=== PATIENT | male | born 1935 | race Two or more races ===

== ENCOUNTER → 2023-12-22 11:06 | Outpatient (REF) | payer OTHER, SELFPAY ==
[2023-12-22 15:47] LABS: % Basophils 1.1 % (0-2); % Eosinophils 4.7 % (0-6); % Immature Granulocytes 0.4 % (0-0.5); % Lymphocytes 22.5 % (20.5-51.1); % Monocytes 14.2 % (1.7-9.3); % Neutrophils 57.1 % (42.2-75.2); Absolute Basophils 0.1 10^3/uL (0-0.2); Absolute Eosinophils 0.4 10^3/uL (0-0.7); Absolute Lymphocytes 1.8 10^3/uL (1.2-3.4); Absolute Monocytes 1.1 10^3/uL (0.1-0.6); Absolute Neutrophils 4.5 10^3/uL (1.4-6.5); Hematocrit 43.1 % (39.0-52.0); Hemoglobin 14.3 g/dL (13.0-18.0); Mean Corp Hgb Conc. 33.2 g/dL (33.0-37.0); Mean Corpuscular Hgb 28.7 pg (27.0-31.0); Mean Corpuscular Volume 86.5 fL (80.0-94.0); Nucleated Red Blood Cells % 0 % (-); Platelet Count 238 10^3/uL (130-400); Red Blood Cell Count 4.98 10^6/uL (4.70-6.10); Red Cell Dist. Width 14.7 % (11.5-14.5); White Blood Cell Count 7.9 10^3/uL (4.8-10.8)
[2023-12-22 15:57] LABS: Blood Urea Nitrogen 23 mg/dl (9-20); Calcium 9.6 mg/dl (8.4-10.2); Carbon Dioxide 29 mmol/L (22-30); Chloride 101 mmol/L (98-107); Glucose 94 mg/dl (70-99); Potassium 4.6 mmol/L (3.5-5.1); Sodium 136 mmol/L (135-145); eGFR > 60.00
== END ==
LOC: HWLAB 11:06
PROVIDERS: ATTENDING PHYSICIAN Nurse Practitioner Family; FAMILY PHYSICIAN Internal Medicine; REFERRING PHYSICIAN Internal Medicine Cardiovascular Disease
DX: I35.0 Nonrheumatic aortic (valve) stenosis (principal); I25.10 Atherosclerotic heart disease of native coronary artery without angina pectoris
CPT/HCPCS: 36415; 80048; 85025

== ENCOUNTER → 2024-04-13 16:01 | Outpatient (REF) | payer OTHER, SELFPAY | LOC: RCS 16:01 | PROVIDERS: ATTENDING PHYSICIAN Internal Medicine Cardiovascular Disease; FAMILY PHYSICIAN Internal Medicine | DX: Z95.2 Presence of prosthetic heart valve (principal) | CPT/HCPCS: 93306 ==

== ENCOUNTER → 2024-05-03 13:12 | Outpatient (REF) | payer OTHER, SELFPAY ==
[2024-05-03 15:50] LABS: ALT (SGPT) 17 U/L (0-50); AST (SGOT) 33 U/L (17-59); Albumin 4.1 g/dl (3.5-5.0); Alkaline Phosphatase 62 U/L (38-126); Blood Urea Nitrogen 17 mg/dl (9-20); Calcium 9.4 mg/dl (8.4-10.2); Carbon Dioxide 28 mmol/L (22-30); Chloride 99 mmol/L (98-107); Glucose 99 mg/dl (70-99); HDL Cholesterol 50 mg/dl; LDL Cholesterol, Calculated 117 mg/dl; Potassium 4.2 mmol/L (3.5-5.1); Sodium 135 mmol/L (135-145); Total Bilirubin 1.3 mg/dl (0.2-1.3); Total Cholesterol 178 mg/dl (50-199); Total Protein 6.5 g/dl (6.3-8.2); Triglyceride 59 mg/dl (10-149); Very Low Density Lipoprotein 11 mg/dl (0-30); eGFR > 60.00
[2024-05-03 18:51] LABS: % Basophils 0.9 % (0-2); % Immature Granulocytes 0.3 % (0-0.5); % Lymphocytes 23.7 % (20.5-51.1); % Monocytes 12.8 % (1.7-9.3); % Neutrophils 58.3 % (42.2-75.2); Absolute Basophils 0.1 10^3/uL (0-0.2); Absolute Eosinophils 0.3 10^3/uL (0-0.7); Absolute Lymphocytes 1.7 10^3/uL (1.2-3.4); Absolute Monocytes 0.9 10^3/uL (0.1-0.6); Absolute Neutrophils 4.1 10^3/uL (1.4-6.5); Hemoglobin 15.2 g/dL (13.0-18.0); Mean Corp Hgb Conc. 33.8 g/dL (33.0-37.0); Mean Corpuscular Hgb 29.1 pg (27.0-31.0); Mean Corpuscular Volume 86.2 fL (80.0-94.0); Mean Platelet Volume 11.4 fL (7.4-10.4); Nucleated Red Blood Cells % 0 % (-); Platelet Count 192 10^3/uL (130-400); Red Blood Cell Count 5.22 10^6/uL (4.70-6.10); Red Cell Dist. Width 15.4 % (11.5-14.5); White Blood Cell Count 7.1 10^3/uL (4.8-10.8)
[2024-05-03 19:16] LABS: NT-proBNP 4150 pg/ml
== END ==
LOC: HWLAB 13:12
PROVIDERS: ATTENDING PHYSICIAN Internal Medicine Cardiovascular Disease; FAMILY PHYSICIAN Nurse Practitioner
DX: Z95.2 Presence of prosthetic heart valve (principal); R06.09 Other forms of dyspnea; I25.10 Atherosclerotic heart disease of native coronary artery without angina pectoris
CPT/HCPCS: 36415; 80053; 80061; 83880; 85025

== ENCOUNTER 2024-05-04 12:14 | Emergency (ER) | payer OTHER, SELFPAY ==
[2024-05-04 12:17] VITALS: BP 140/94
[2024-05-04 13:44] VITALS: BMI 24.4
[2024-05-04 14:03] LABS: % Basophils 0.7 % (0-2); % Eosinophils 3.7 % (0-6); % Immature Granulocytes 0.4 % (0-0.5); % Lymphocytes 19.9 % (20.5-51.1); % Monocytes 12.8 % (1.7-9.3); % Neutrophils 62.5 % (42.2-75.2); Absolute Basophils 0.1 10^3/uL (0-0.2); Absolute Eosinophils 0.3 10^3/uL (0-0.7); Absolute Lymphocytes 1.5 10^3/uL (1.2-3.4); Absolute Neutrophils 4.7 10^3/uL (1.4-6.5); Hemoglobin 13.5 g/dL (13.0-18.0); Mean Corp Hgb Conc. 34.6 g/dL (33.0-37.0); Mean Corpuscular Hgb 28.8 pg (27.0-31.0); Mean Corpuscular Volume 83.2 fL (80.0-94.0); Mean Platelet Volume 10.5 fL (7.4-10.4); Nucleated Red Blood Cells % 0 % (-); Platelet Count 177 10^3/uL (130-400); Red Blood Cell Count 4.69 10^6/uL (4.70-6.10); Red Cell Dist. Width 15.8 % (11.5-14.5); White Blood Cell Count 7.5 10^3/uL (4.8-10.8)
[2024-05-04 14:04] LABS: Urine Albumin Trace (Neg - Trace); Urine Bilirubin Negative (Negative); Urine Character Clear (Clear); Urine Color Yellow; Urine Glucose Negative (Negative); Urine Ketone Negative (Negative); Urine Leukocyte Negative (Negative); Urine Nitrite Negative (Negative); Urine Occult Blood Negative (Negative); Urine Urobilinogen 1+ (Neg - 1+)
[2024-05-04 14:10] VITALS: BP 147/81
[2024-05-04 14:14] LABS: INR 1.33; PT 16.3 Sec (11.4-14.6)
[2024-05-04 14:15] LABS: APTT 33.7 Sec (23.4-35.0)
[2024-05-04 14:22] LABS: ALT (SGPT) 16 U/L (0-50); AST (SGOT) 30 U/L (17-59); Albumin 3.7 g/dl (3.5-5.0); Alkaline Phosphatase 59 U/L (38-126); Blood Urea Nitrogen 21 mg/dl (9-20); Calcium 8.9 mg/dl (8.4-10.2); Carbon Dioxide 27 mmol/L (22-30); Chloride 100 mmol/L (98-107); Estimated Creatinine Clearance 62 ml/min; Glucose 80 mg/dl (70-99); Potassium 4.2 mmol/L (3.5-5.1); Sodium 134 mmol/L (135-145); Total Bilirubin 0.9 mg/dl (0.2-1.3); eGFR > 60.00
--- NOTE | 2024-05-04 14:54 | ED.GENMED ---
History of Present Illness
General
Chief Complaint: Change in Mental Status
Time Seen by Provider: 05/04/24 12:48
History of Present Illness
History of Present Illness:
89-year-old male with history of aortic stenosis status post TAVR on 03/17 on apixaban, hypertension presenting to the emergency department for change in mental status. Patient arrives with who reports about 2 weeks after patient's TAVR, patient
started to have some confusion and change in behavior. Patient has been having daily mild headaches, has felt a little bit off balance with patient. also notes that he has been slower to complete daily tasks. She mentions a particular
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 He gave her the wrong hair color, which is unlike him. He denies any focal weakness or sensory deficits to his extremities. He does note some
changes in vision, reports changes in color when reading, however denies significant blurred vision or diplopia. Does note that he has not had an eye exam in several years. Denies chest pain, difficulty breathing, abdominal pain. Denies fever or
systemic symptoms. Denies neck pain or stiffness. Denies recent fall or trauma. Denies additional acute medical complaints.
Phy Exam
Physical Exam
Physical Exam:
General: Well-appearing, no clinical signs of dehydration, nontoxic and in no acute distress
HEENT: protecting airway
Neck: appears supple
CV: Normal heart rate, regular rhythm, no evidence of cyanosis
Resp: No accessory muscle use, no increased work of breathing, lungs clear to auscultation bilaterally
Abd: Soft and non-distended, no tenderness to palpation, normal bowel sounds
Extremities: No deformities, no swelling, no erythema, pulses and sensation intact
Neuro: alert, no focal neurologic deficit. Patient ambulated, slightly off balance, however no significant abnormality to gait
: deferred
Rectal: deferred
Psych: Normal affect
Skin: Intact
Course
Orders/Labs/Results
Orders:
Orders
05/04/24 13:24
CT Head W/o Iv Contrast Urgent
Comment:
Reason For Exam: confusion x 1 month
05/04/24 13:42
Complete Blood Count/With Diff Urgent
Comprehensive Metabolic Panel Urgent
PTT Urgent
Prothrombin Time Urgent
Urinalysis Reflex To Culture Urgent
Date Specimen was Collected: 05/04/24
Time Specimen was Collected: 12:23
Abnormal Lab Results
05/04/24
13:42
RBC 4.69 L 10^6/uL
(4.70-6.10)
RDW 15.8 H %
(11.5-14.5)
MPV 10.5 H fL
(7.4-10.4)
Absolute Monos (auto) 1.0 H 10^3/uL
(0.1-0.6)
Lymphocytes % 19.9 L %
(20.5-51.1)
Monocytes % 12.8 H %
(1.7-9.3)
PT 16.3 H Sec
(11.4-14.6)
Sodium 134 L mmol/L
(135-145)
BUN 21 H mg/dl
(9-20)
Total Protein 6.0 L g/dl
(6.3-8.2)
05/04/24 13:42
05/04/24 13:42
Vital Signs
Initial and Last Documented VS:
Initial Vital Signs
Temp Pulse Resp BP Pulse Ox
97.5 F 83 18 140/94 100
05/04/24 12:17 05/04/24 12:17 05/04/24 12:17 05/04/24 12:17 05/04/24 12:17
Last Documented Vital Signs
Temp Pulse Resp BP Pulse Ox
97.5 F 77 22 147/81 99
05/04/24 12:17 05/04/24 14:10 05/04/24 14:10 05/04/24 14:10 05/04/24 14:10
MDM/Problems Addressed
MDM/Problems Addressed:
89-year-old male status post TAVR 03/17 on Eliquis presenting for about 1 month of increased confusion. Vital signs on arrival are normal.
On exam, patient is well-appearing, no acute distress or discomfort. Patient is awake, alert, oriented. No focal neurologic deficits, intact strength and sensation bilaterally. Normal [id number] testing. Ambulated without abnormality to
gait, slightly off balance however. Patient afebrile, no meningismus, without concern for severe infectious pathology. Unclear etiology of symptoms, particularly given duration of the symptoms. Will obtain laboratory analysis and urinalysis to
ensure no UTI. Again given length of symptoms, will obtain CT brain imaging.
16:00 -patient's labs are unremarkable, normal urinalysis, normal laboratory analysis, CT brain with cerebral atrophy, no acute findings. Vitals otherwise remain stable. Discussed with neurology, who will come evaluate patient to expedite
follow-up. Given hemodynamic stability with duration of symptoms, feel patient can appropriately be followed up outpatient with a neurologist for cognitive testing to evaluate for underlying developing dementia versus Parkinson's disease versus
demyelinating disease, potentially MRI imaging. Also advised that he schedule an appointment with his telecom specialist for formal ophthalmologic exam. Return precautions indicated and patient and family verbalized understanding
*Critical Care Note
Total Time (30-74mins, 75-104mins- exclusive of procedures): Not Applicable
ED Attending Note
-
Portions of this chart may have been created with voice recognition software.� Occasional wrong word or��sound alike� substitutions may have occurred due to the inherent limitations of voice recognition software.
Discharge Plan
Departure
Patient Disposition: Home (Routine Discharge)
Date of Disposition: 05/04/24
Time of Disposition: 17:38
Patient with high blood pressure during this ER visit?: No
Condition: Good
Discharge Problem:
Behavioral change, Balance problem
Instructions: Altered Mental Status (DC)
Prescriptions:
No Action
Eliquis 5 MG tablet
5 mg PO BID
multivitamin with folic acid [Tab-A-Brandon] 1 TABLET tablet
1 tab PO DAILY
[place]-3/Turmeric
1 tab PO DAILY
Vitamin D3-Vitamin K3
1 tab PO DAILY
Referrals:
Suresh Price MD [Active] - (balance issues, confusion x 1 month)
Diana Turner CRNP [Family Provider] -
Activity Restrictions/Additional Instructions:
You were seen in the emergency department for confusion and feeling off balance.
You were found to have normal laboratory analysis, urinalysis, CT brain imaging
Please follow-up closely with your primary care physician, and establish care with a neurologist.
Return to the emergency department for any worsening of your symptoms, or any development of chest pain, difficulty breathing, abdominal pain with persistent vomiting and inability to tolerate food or liquid by mouth (concern for dehydration),
weakness or difficulty ambulating, headache or confusion, fever greater than 100.4, or any additional symptoms that are concerning to you.
Thank you for choosing [facility].
Interventions
Interventions:
*Risk Screen - Suicide Last Done: 05/04/24 12:17
*General Assessment Last Done: 05/04/24 12:17
*Neglect/Abuse Screening Last Done: 05/04/24 12:17
ED- Fall Risk Assessment Last Done: 05/04/24 14:10
*ED COVID-19 Vaccine History Last Done: 05/04/24 13:44
ED- Pulmonary Assessment Last Done: 05/04/24 14:10
ED- Neurological Assessment Last Done: 05/04/24 13:44
ED- Cardiac Assessment Last Done: 05/04/24 14:10
ED Swallowing Screen Last Done: 05/04/24 14:11
Discharge Date and Time
Print Language: AUSTRIAN
[2024-05-04 18:08] VITALS: BP 154/76
--- NOTE | 2024-05-04 18:20 | EDRN ---
REviewed discharge instructions with patient and his . Verbalized understanding. Taken to lobby in wheelchair.
== END 2024-05-04 18:21 | disposition home or self-care (01) ==
LOC: EMR 12:14
PROVIDERS: Emergency Medicine; EMERGENCY PHYSICIAN Student in an Organized Health Care Education/Training Program; FAMILY PHYSICIAN Nurse Practitioner
DX: R41.82 Altered mental status, unspecified (principal); R26.89 Other abnormalities of gait and mobility; R51.9 Headache, unspecified; G31.9 Degenerative disease of nervous system, unspecified; I35.0 Nonrheumatic aortic (valve) stenosis; I10 Essential (primary) hypertension; Z95.2 Presence of prosthetic heart valve; Z79.01 Long term (current) use of anticoagulants
CPT/HCPCS: 99284; 70450; 80053; 81003; 85025; 85610; 85730

== ENCOUNTER → 2024-06-09 09:34 | Outpatient (REF) | payer OTHER, SELFPAY | LOC: RAD 09:34 | PROVIDERS: ATTENDING PHYSICIAN Internal Medicine Cardiovascular Disease; FAMILY PHYSICIAN Nurse Practitioner | DX: Z95.2 Presence of prosthetic heart valve (principal) | CPT/HCPCS: 93922; 93925 ==

== ENCOUNTER → 2024-06-10 18:15 | Outpatient (REF) | payer OTHER, SELFPAY | LOC: PAVMRI 18:15 | PROVIDERS: ATTENDING PHYSICIAN Internal Medicine | DX: G91.2 (Idiopathic) normal pressure hydrocephalus (principal) | CPT/HCPCS: 70551 ==

== ENCOUNTER 2024-06-14 13:36 | Outpatient (RCR) | payer OTHER, SELFPAY | END 2024-06-14 23:59 | disposition home or self-care (01) | LOC: CRHB 13:36 | PROVIDERS: ATTENDING PHYSICIAN Internal Medicine Cardiovascular Disease; FAMILY PHYSICIAN Nurse Practitioner | DX: Z95.4 Presence of other heart-valve replacement (principal) | CPT/HCPCS: G0422; G0423 ==

== ENCOUNTER 2024-06-17 13:41 | Emergency (ER) | payer OTHER, SELFPAY ==
[2024-06-17 13:43] VITALS: BP 197/108
[2024-06-17 13:55] VITALS: BP 169/72
--- NOTE | 2024-06-17 13:55 | ED.GENMED ---
History of Present Illness
General
Chief Complaint: Visual Problem
Time Seen by Provider: 06/17/24 13:55
History of Present Illness
History of Present Illness:
HPI: The patient presents due to worsening weakness, worsening overall function. At around 11 AM today, he had a very severe headache but currently describes it as 'slight'. The patient had a TAVR this past March and since then his mental status
has been poor. Initially it was felt to be related to the TAVR however there was also some question about NPH. He had an MRI recently and family cannot get into see neurology or neurosurgery until next year.
EXAM:
GENERAL: The patient appears generally weak and debilitated
HEENT: Moist oral mucosa
CARDIOVASCULAR: No murmurs, normal heart rate, regular rhythm, No chest wall tenderness
PULMONARY: No respiratory distress, breath sounds are clear and equal
ABDOMEN: Soft with no peritoneal signs, no tenderness
NEUROLOGIC: 4+ out of 5 strength in all extremities, no patient deficits, he was able to walk with assistance with his
PSYCHIATRIC: The patient's insight and judgment are fair but seems to have some cognitive deficits
EXTREMITIES: Nontender, no edema, moves all extremities equally
SKIN: No rash, no lesions
TIME OF INITIAL ENCOUNTER: 2 PM
NUMBER AND COMPLEXITY OF PROBLEMS ADDRESSED AT THE ENCOUNTER
� Chronic conditions affecting care: Atrial fibrillation on Eliquis, high blood pressure, aortic stenosis status post TAVR in March 2024 NPH
� Acute Exacerbation and/or Progression of Chronic Illness: This is an acute problem
� Differential Diagnosis includes: Progressive functional decline, SDAT, NPH, bleed from Eliquis
AMOUNT AND/OR COMPLEXITY OF DATA TO BE REVIEWED AND ANALYZED
� I performed an independent evaluation of and my interpretation is:
EKG:
CT: CT brain shows no acute abnormality no change from recent MRI from last month
X-rays:
Laboratory Studies: CBC and chemistries unremarkable
Other:
� Review of other/old records: I reviewed the MRI report and patient reviewed MRI imaging
� Clinical information was obtained by an independent historian: I spoke to the
� Prescriptions/Medications Considered but not given:
� Further testing considered but not performed:
RISK OF COMPLICATIONS AND/OR MORBIDITY OR MORTALITY OF PATIENT MANAGEMENT
� Social determinants of health affecting care:
� Discussion with other providers:
� Escalation of care including admission/observation vs risk of discharge considered: Although patient did have some concerns that she was told about the possibly of NPH, the most recent MRI is more consistent with brain volume
loss from Alzheimer's type dementia. I have relatively low suspicion for NPH. voiced concerns about not being able to get into see neurology and neurosurgery as an outpatient. However there is no clear indication for admission to the
hospital at this time as there is no identifiable emergent condition noted.
Phy Exam
Physical Exam
Physical Exam:
See HPI
Course
Orders/Labs/Results
Orders:
Orders
06/17/24 14:08
CT Head W/o Iv Contrast Urgent
Comment:
Reason For Exam: severe MENDOZA on eliquis; ?NPH by MRI
06/17/24 14:17
Complete Blood Count/With Diff Urgent
Comprehensive Metabolic Panel Urgent
Abnormal Lab Results
06/17/24
14:17
RDW 16.0 H %
(11.5-14.5)
Absolute Monos (auto) 1.1 H 10^3/uL
(0.1-0.6)
Lymphocytes % 18.4 L %
(20.5-51.1)
Monocytes % 13.6 H %
(1.7-9.3)
Creatinine 0.6 L mg/dL
(0.7-1.3)
06/17/24 14:17
06/17/24 14:17
Vital Signs
Initial and Last Documented VS:
Initial Vital Signs
Temp Pulse Resp BP Pulse Ox
97.8 F 82 16 197/108 98
06/17/24 13:43 06/17/24 13:43 06/17/24 13:43 06/17/24 13:43 06/17/24 13:43
Last Documented Vital Signs
Temp Pulse Resp BP Pulse Ox
97.8 F 70 11 140/86 97
06/17/24 13:43 06/17/24 17:00 06/17/24 17:00 06/17/24 17:00 06/17/24 17:00
*Critical Care Note
Total Time (30-74mins, 75-104mins- exclusive of procedures): Not Applicable
ED Attending Note
-
Portions of this chart may have been created with voice recognition software.� Occasional wrong word or��sound alike� substitutions may have occurred due to the inherent limitations of voice recognition software.
Discharge Plan
Departure
Patient Disposition: Home (Routine Discharge)
Date of Disposition: 06/17/24
Time of Disposition: 16:47
Patient with high blood pressure during this ER visit?: Yes
Discharge Problem:
Headache
Instructions: Headache, Adult (DC)
Prescriptions:
No Action
Eliquis 5 MG tablet
5 mg PO BID
multivitamin with folic acid [Tab-A-Brandon] 1 TABLET tablet
1 tab PO DAILY
[place]-3/Turmeric
1 tab PO DAILY
Vitamin D3-Vitamin K3
1 tab PO DAILY
Referrals:
Diana Turner CRNP [Family Provider] -
Activity Restrictions/Additional Instructions:
The cause of the earlier headache is unclear. There is no sign of bleeding on today's CAT scan. Today's CAT scan does not appear to be any different compared to the MRI from June 10. The MRI report appeared to be more consistent with a
neurodegenerative disease such as Alzheimer's dementia.
Interventions
Interventions:
*Risk Screen - Suicide Last Done: 06/17/24 13:43
*General Assessment Last Done: 06/17/24 14:19
*Neglect/Abuse Screening Last Done: 06/17/24 13:43
ED- Fall Risk Assessment Last Done: 06/17/24 17:05
*ED COVID-19 Vaccine History Last Done: 06/17/24 14:19
*Nursing Disposition Last Done: 06/17/24 17:05
ED- Neurological Assessment Last Done: 06/17/24 14:19
ED-EENT Assessment Last Done: 06/17/24 14:19
ED Swallowing Screen Last Done: 06/17/24 16:22
Discharge Date and Time
Discharge Date/Time: 06/17/24 17:20
Print Language: CYMRO
[2024-06-17 14:23] LABS: % Immature Granulocytes 0.4 % (0-0.5); % Lymphocytes 18.4 % (20.5-51.1); % Monocytes 13.6 % (1.7-9.3); % Neutrophils 61.6 % (42.2-75.2); Absolute Basophils 0.1 10^3/uL (0-0.2); Absolute Eosinophils 0.4 10^3/uL (0-0.7); Absolute Lymphocytes 1.5 10^3/uL (1.2-3.4); Absolute Monocytes 1.1 10^3/uL (0.1-0.6); Absolute Neutrophils 5.1 10^3/uL (1.4-6.5); Hematocrit 42.9 % (39.0-52.0); Hemoglobin 14.6 g/dL (13.0-18.0); Mean Corpuscular Hgb 29.4 pg (27.0-31.0); Mean Corpuscular Volume 86.5 fL (80.0-94.0); Mean Platelet Volume 10.2 fL (7.4-10.4); Nucleated Red Blood Cells % 0 % (-); Platelet Count 175 10^3/uL (130-400); Red Blood Cell Count 4.96 10^6/uL (4.70-6.10); White Blood Cell Count 8.3 10^3/uL (4.8-10.8)
[2024-06-17 14:49] LABS: ALT (SGPT) 16 U/L (0-50); AST (SGOT) 31 U/L (17-59); Albumin 3.8 g/dl (3.5-5.0); Alkaline Phosphatase 47 U/L (38-126); Blood Urea Nitrogen 17 mg/dl (9-20); Calcium 9.1 mg/dl (8.4-10.2); Carbon Dioxide 29 mmol/L (22-30); Chloride 101 mmol/L (98-107); Glucose 78 mg/dl (70-99); Potassium 4.1 mmol/L (3.5-5.1); Sodium 140 mmol/L (135-145); Total Bilirubin 1.1 mg/dl (0.2-1.3); Total Protein 6.4 g/dl (6.3-8.2); eGFR > 60.00
[2024-06-17 16:20] VITALS: BP 157/73
[2024-06-17 16:50] VITALS: BP 137/76
[2024-06-17 17:00] VITALS: BP 140/86
== END 2024-06-17 17:20 | disposition home or self-care (01) ==
LOC: EMR 13:41
PROVIDERS: EMERGENCY PHYSICIAN Emergency Medicine; FAMILY PHYSICIAN Nurse Practitioner
DX: R51.9 Headache, unspecified (principal); R03.0 Elevated blood-pressure reading, without diagnosis of hypertension
CPT/HCPCS: 99284; 70450; 80053; 85025

== ENCOUNTER 2024-07-14 13:39 | Outpatient (RCR) | payer OTHER, SELFPAY | END 2024-07-14 23:59 | disposition home or self-care (01) | LOC: CRHB 13:39 | PROVIDERS: ATTENDING PHYSICIAN Internal Medicine Cardiovascular Disease; FAMILY PHYSICIAN Nurse Practitioner | DX: I25.10 Atherosclerotic heart disease of native coronary artery without angina pectoris (principal); Z95.4 Presence of other heart-valve replacement | CPT/HCPCS: G0422; G0423 ==

== ENCOUNTER 2024-08-11 13:49 | Outpatient (RCR) | payer OTHER, SELFPAY | END 2024-08-11 23:59 | disposition home or self-care (01) | LOC: CRHB 13:49 | PROVIDERS: ATTENDING PHYSICIAN Internal Medicine Cardiovascular Disease; FAMILY PHYSICIAN Nurse Practitioner | DX: Z95.4 Presence of other heart-valve replacement; I35.0 Nonrheumatic aortic (valve) stenosis | CPT/HCPCS: G0422; G0423 ==

== ENCOUNTER 2024-09-13 14:06 | Outpatient (RCR) | payer OTHER, SELFPAY | END 2024-09-13 23:59 | disposition home or self-care (01) | LOC: CRHB 14:06 | PROVIDERS: ATTENDING PHYSICIAN Internal Medicine Cardiovascular Disease; FAMILY PHYSICIAN Nurse Practitioner | DX: I35.0 Nonrheumatic aortic (valve) stenosis (principal); Z95.4 Presence of other heart-valve replacement | CPT/HCPCS: G0422; G0423 ==

== ENCOUNTER → 2024-12-15 12:01 | Outpatient (REF) | payer OTHER, SELFPAY ==
[2024-12-15 16:20] LABS: ALT (SGPT) 15 U/L (0-50); AST (SGOT) 31 U/L (17-59); Albumin 3.8 g/dl (3.5-5.0); Alkaline Phosphatase 62 U/L (38-126); Blood Urea Nitrogen 13 mg/dl (9-20); Calcium 9.2 mg/dl (8.4-10.2); Carbon Dioxide 31 mmol/L (22-30); Chloride 102 mmol/L (98-107); Glucose 85 mg/dl (70-99); Potassium 4.3 mmol/L (3.5-5.1); Sodium 140 mmol/L (135-145); Total Bilirubin 1.3 mg/dl (0.2-1.3); Total Protein 6.5 g/dl (6.3-8.2); eGFR > 60.00
[2024-12-15 16:31] LABS: NT-proBNP 3010 pg/ml
== END ==
LOC: HWLAB 12:01
PROVIDERS: ATTENDING PHYSICIAN Internal Medicine Cardiovascular Disease; FAMILY PHYSICIAN Nurse Practitioner
DX: I10 Essential (primary) hypertension (principal)
CPT/HCPCS: 36415; 80053; 83880

== ENCOUNTER → 2025-07-20 12:48 | Outpatient (REF) | payer OTHER, SELFPAY | LOC: HWRAD 12:48 | PROVIDERS: ATTENDING PHYSICIAN Psychiatry & Neurology Neurology; FAMILY PHYSICIAN Internal Medicine | DX: G91.2 (Idiopathic) normal pressure hydrocephalus (principal); R26.89 Other abnormalities of gait and mobility | CPT/HCPCS: 70450 ==

== ENCOUNTER 2025-08-30 13:16 | Inpatient (IN) | payer OTHER, SELFPAY ==
[2025-08-27 16:38] VITALS: BP 137/100
[2025-08-27] MEDS: TYLENOL 500 MG PO (18:46)
--- NOTE | 2025-08-27 20:05 | ED.GENMED ---
History of Present Illness
<Shannan Foreman PA-C - Last Filed: 08/27/25 20:08>
General
Chief Complaint: Fall
Time Seen by Provider: 08/27/25 17:33
History of Present Illness
History of Present Illness:
As [id number] male with past medical history of 'cerebral ischemia' on Eliquis and dementia who presents after a fall several days ago and ongoing back pain. Patient is unable to ambulate like usual and has been complaining of severe pain and
is concerned. Denies any head strike during the fall or loss of consciousness. Has remained at his baseline mental status. Family reports that he has episodes where he requires more assistance than others but these resolved without any
intervention.
Phy Exam
<Shannan Foreman PA-C - Last Filed: 08/27/25 20:08>
General Physical Exam
General Presentation: well appearing and no apparent distress
General Skin: warm and dry
General Habitus: normal
General Mental: alert
General Hydration: appears well hydrated
ENT Exam
ENT Exam: EOMI, pharynx normal, neck supple and normocephalic
Eye Exam
Eye Exam: PERRL, cornea clear and conjunctiva normal
Cardiovascular Exam
Cardiovascular Exam: regular rate/rhythm, no edema, no murmur and normal peripheral pulses
Pulmonary Exam
Pulmonary Exam: lungs clear, no respiratory distress, no rales, no crackles, no rhonchi, no stridor, no wheezing and no cough
Gastrointestinal Exam
Gastrointestinal Exam: normal bowel sounds, non tender, soft, no organomegaly, no pulsatile mass and non distended
Neurological Exam
Neurological Exam: alert, oriented x3, no motor deficits and speech normal
Musculoskeletal Exam
Musculoskeletal Exam: full ROM, back pain (Midline thoracic and lumbar pain) and no edema
Skin Exam
Skin Exam: normal color, warm/dry, no rash and no petechia
Psychiatric Exam
Psychiatric Exam: normal mood/affect
Course
<Shannan Foreman PA-C - Last Filed: 08/27/25 20:08>
Orders/Labs/Results
Orders:
Orders
08/27/25 18:09
CT Abd/pelvis Wo Iv Cont Urgent
Comment:
Reason For Exam: back pain after fall
Acetaminophen [Tylenol] 500 mg PO NOW STA
08/27/25 19:46
Oxycodone [Roxicodone] 5 mg PO NOW STA
08/27/25 19:56
HYDROmorphone [Dilaudid] 0.5 mg IV NOW STA
08/27/25 20:05
CMP [Comprehensive Metabolic Panel] Urgent
Complete Blood Count/With Diff Urgent
08/27/25 20:[address] [CT Head W/o Iv Contrast] Urgent
Comment:
Reason For Exam: fall on eliquis
Abnormal Lab Results
08/27/25
20:05
WBC 12.0 H 10^3/uL
(4.8-10.8)
RDW 14.9 H %
(11.5-14.5)
Absolute Neuts (auto) 9.0 H 10^3/uL
(1.4-6.5)
Absolute Monos (auto) 1.3 H 10^3/uL
(0.1-0.6)
Neutrophils % 75.5 H %
(42.2-75.2)
Lymphocytes % 12.0 L %
(20.5-51.1)
Monocytes % 10.9 H %
(1.7-9.3)
Creatinine 0.6 L mg/dL
(0.7-1.3)
Total Bilirubin 1.8 H mg/dl
(0.2-1.3)
08/27/25 20:05
12/13/25 20:05
Vital Signs
Initial and Last Documented VS:
Initial Vital Signs
Temp Pulse Resp BP Pulse Ox
97.9 F 91 16 137/100 98
08/27/25 16:38 08/27/25 16:38 08/27/25 16:38 08/27/25 16:38 08/27/25 16:38
Last Documented Vital Signs
Temp Pulse Resp BP Pulse Ox
97.9 F 76 16 127/76 98
08/27/25 16:38 08/27/25 20:10 08/27/25 20:10 08/27/25 20:10 08/27/25 20:10
<Khanh Trujillo MD - Last Filed: 08/27/25 21:09>
Orders/Labs/Results
Orders:
Orders
08/27/25 18:09
CT Abd/pelvis Wo Iv Cont Urgent
Comment:
Reason For Exam: back pain after fall
Acetaminophen [Tylenol] 500 mg PO NOW STA
08/27/25 19:46
Oxycodone [Roxicodone] 5 mg PO NOW STA
08/27/25 19:56
HYDROmorphone [Dilaudid] 0.5 mg IV NOW STA
08/27/25 20:05
CMP [Comprehensive Metabolic Panel] Urgent
Complete Blood Count/With Diff Urgent
08/27/25 20:[address] [CT Head W/o Iv Contrast] Urgent
Comment:
Reason For Exam: fall on eliquis
Abnormal Lab Results
08/27/25
20:05
WBC 12.0 H 10^3/uL
(4.8-10.8)
RDW 14.9 H %
(11.5-14.5)
Absolute Neuts (auto) 9.0 H 10^3/uL
(1.4-6.5)
Absolute Monos (auto) 1.3 H 10^3/uL
(0.1-0.6)
Neutrophils % 75.5 H %
(42.2-75.2)
Lymphocytes % 12.0 L %
(20.5-51.1)
Monocytes % 10.9 H %
(1.7-9.3)
Creatinine 0.6 L mg/dL
(0.7-1.3)
Total Bilirubin 1.8 H mg/dl
(0.2-1.3)
08/27/25 20:05
08/27/25 20:05
Vital Signs
Initial and Last Documented VS:
Initial Vital Signs
Temp Pulse Resp BP Pulse Ox
97.9 F 91 16 137/100 98
08/27/25 16:38 08/27/25 16:38 08/27/25 16:38 08/27/25 16:38 08/27/25 16:38
Last Documented Vital Signs
Temp Pulse Resp BP Pulse Ox
97.9 F 76 16 127/76 98
08/27/25 16:38 08/27/25 20:10 08/27/25 20:10 08/27/25 20:10 08/27/25 20:10
<Shannan Foreman PA-C - Last Filed: 08/27/25 20:08>
MDM/Problems Addressed
Differential Diagnosis Includes:
Fall occurred several days ago and patient has remained at his normal mental status per and son who are at the bedside. Received Tylenol prior to coming in with little relief. CT imaging obtained and shows acute T12 fracture without
retropulsion. Patient given Dilaudid for pain. Discussed with hospitalist patient pain control with physical therapy. Remains unable to ambulate which she is typically able to do.
<Shannan Foreman PA-C - Last Filed: 08/27/25 20:08>
*Pulse Oximetry
SaO2: 98
Oxygen Mode of Delivery: Room air
Patient hypoxic: no
*Critical Care Note
Total Time (30-74mins, 75-104mins- exclusive of procedures): Not Applicable
ED Attending Note
<Shannan Foreman PA-C - Last Filed: 08/27/25 20:08>
-
Portions of this chart may have been created with voice recognition software.� Occasional wrong word or��sound alike� substitutions may have occurred due to the inherent limitations of voice recognition software.
<Khanh Trujillo MD - Last Filed: 08/27/25 21:09>
ED Attending Note
Patient seen and examined by attending physician: Yes
ED Attending Note:
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 Denies fever or chills. Denies headache. Denies urinary
or bowel incontinence. Denies loss of sensation or weakness. Patient has difficult time moving secondary to pain.
CT reveals acute thoracic spine, T12 fracture, which correlates with patient's presenting symptoms. In light of patient's significant pain, patient will be admitted for further evaluation and treatment.
Discharge Plan
Departure
Patient Disposition: Admit
Date of Disposition: 08/27/25
Time of Disposition: 19:59
Presentation/result/management discussed w/ accepting MD/DO: Hospitalist
Discharge Problem:
Closed T12 fracture, Back pain, Fall
Prescriptions:
No Action
Eliquis 5 MG tablet
5 mg PO BID
Referrals:
Hollis Rees MD [Family Provider, Internal Medicine]
Interventions
Interventions:
*Risk Screen - Suicide Last Done: 08/27/25 16:38
*General Assessment Last Done: 08/27/25 18:00
*Neglect/Abuse Screening Last Done: 08/27/25 16:38
*ED COVID-19 Vaccine History Last Done: 08/27/25 20:10
*ED Influenza Vaccine History Last Done: 08/27/25 20:10
[facility] Fall Risk Assessment Tool Last Done: 08/27/25 18:00
ED-Musculoskeletal Assessment Last Done: 08/27/25 20:10
ED- Neurological Assessment Last Done: 08/27/25 18:00
ED-Skin Assessment Last Done: 08/27/25 20:10
Discharge Date and Time
Print Language: IVORIAN
[2025-08-27] MEDS: DILAUDID 0.5 MG IV (20:07)
[2025-08-27 20:10] VITALS: BP 127/76
[2025-08-27 20:14] LABS: Hematocrit 43.6 % (39.0-52.0); Hemoglobin 14.9 g/dL (13.0-18.0); Mean Corp Hgb Conc. 34.2 g/dL (33.0-37.0); Mean Corpuscular Volume 83.4 fL (80.0-94.0); Nucleated Red Blood Cells % 0 % (-); Platelet Count 230 10^3/uL (130-400); Red Cell Dist. Width 14.9 % (11.5-14.5)
--- NOTE | 2025-08-27 20:20 | HPS.HSE ---
Addendum entered and electronically signed by Tomas Vinson DO 08/27/25 23:09:
Patient seen and examined independently. Agree with findings and plan as set forth by ROSA Oreilly.
Patient is an 89y M with PMH significant for senile dementia, CVA / TIAs, A-Fib and hypertension who presents to ED for evaluation of back pain after recent fall. History obtained from family at the bedside. Patient had unwitnessed fall two
days ago. Family states they heard a loud noise and went to patient's room to find him on the ground. He was awake and there was no gross evidence of head injury / trauma at that time. Since that fall, Patient has been complaining of significant
mid back pain. This is worse with any movement, standing, sitting upright, etc.
With persistent pain, patient presented to the ED this evening for further evaluation.
Ass:
T12 Compression Fracture
Fall at Home
Chronic Ambulatory Dysfunction
CVA / TIAs
Senile Dementia
Permanent Atrial Fibrillation
Benign Hypertension
s/p TAVR
Plan:
Observe overnight for further evaluation and treatment.
CT head added and shows no evidence of acute trauma, bleed, etc.
Pain control, supportive care for now.
PT / OT eval and treat.
If pain cannot be controlled, consider IR eval / vertebroplasty.
Original Note:
Family Physician
-
Family Physician: Hollis Rees
Chief Complaint
-
Fall with back pain
History of Present Illness
89-year-old male from home brought in due to persistent back pain after a unwitnessed fall several days ago. After his fall he has been complaining of lower back pain radiating around to his abdomen and has been his normal self. His states he
had difficulty following commands to get out of the car he tends to stare off on occasion. She reports security lifted him up into a wheelchair. She states he has history of new diagnosis dementia June 2025 by neurologist along with new right
parietal stroke on CT July [address] in 2023. He was found to have a T12 fracture in the ER with inability to ambulate due to pain. The patient denies headache, loss of consciousness, neck pain, chest pain, palpitations, cough,
shortness of breath, abdominal pain, nausea, vomiting, diarrhea, urinary symptoms.
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
Medical History
Past Medical History
Past Medical History: Reports Other
Additional Past Medical History:
A-fib
NSTEMI
HTN
aortic stenosis status post TAVR 03/17/2024
arthritis
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
Past Surgical History: Reports Other
Additional Past Surgical History:
TAVR 03/17/2024
Social History
Tobacco: Non-smoker
Alcohol: None
Drug: None
Personal:
Living: With Family ( Monae)
Employment: Retired
Family History
Family History: Not pertinent
Allergies / Home Medications
Allergies reflects when Allergies were last updated in [facility].
Home Medications with original date entered in [facility]
Allergy/Medication List:
Allergies
Allergy/AdvReac Type Severity Reaction Status Date / Time
No Known Allergies Allergy Verified 08/27/25 16:37
Home Medications
apixaban 5 mg tablet (Eliquis) 5 mg PO BID Blood clot prevention/tx 05/09/20
Review of Systems
-
History Source: Family ( Chyna)
A 12 point ROS was completed and negative except as noted: Yes
Constitutional: Denies Fever or Chills
EENT: Denies Sore Throat
Respiratory: Denies Cough or Trouble Breathing
Cardiac: Denies Chest Pain, Diaphoresis or Palpitations
Abdomen/GI: Reports Abdominal Pain (Coming from lower back); Denies Nausea, Vomiting, Diarrhea or Constipated
: Denies Dysuria, Frequency or Flank Pain
Musculoskeletal: Reports Other (Lower thoracic/lumbar back pain post unwitnessed fall); Denies Joint Pain
Skin: Denies Itching or Rash
Neurological: Denies Dizzy or Headache
Endocrine: Reports No Symptoms
Hematologic/Lymphatic: Reports No Symptoms
Psych: Reports Other (Sedated post IV Dilaudid)
Physical Exam
Vital Signs
Vital Signs
Temp Pulse Resp BP Pulse Ox
97.9 F 76 16 127/76 98
08/27/25 16:38 08/27/25 20:10 08/27/25 20:10 08/27/25 20:10 08/27/25 20:10
Physical Exam
General: Other (Patient somnolent post IV Dilaudid); No Fever
HEENT: NormoCephalic, Anicteric, Moist mucous membranes, Atraumatic and PERRLA
Respiratory: Clear; No Wheezes, Rales or Rhonchi
Cardiac: S1/S2 and Regular Rhythm; No Murmur, Rub, Gallop or Peripheral Edema
Breast: Deferred by me
GI: Soft, Non Tender, Non Distended and Normal Bowel Sounds
Genito-urinary: Deferred by me
Musculoskeletal: No Clubbing, No Cyanosis and No Edema
Skin: Warm and Dry; No Rash
Neuro: Other (Patient is somnolent post IV Dilaudid when legs touch does withdrawal both legs); No Facial Droop or Tremors
Psych: Calm
Laboratory Results
-
08/27/25 20:05
Data Reviewed
-
Lab Data: Labs Reviewed by me
Impression/Plan
-
Impression/plan:
Observation MedSurg
#Unwitnessed fall fall with T12 fracture intractable pain/ambulatory dysfunction
Chronic ambulatory dysfunction uses walker at baseline times past month
- Tylenol as needed mild pain, oxycodone for moderate pain. Pt somnolent after dilaudid would hold further dosing
- Bowel regimen
- Consult PT/OT/case management
Check CT head
CT abdomen pelvis without contrast:
1. Acute appearing fracture of the superior anterior T12 vertebral body. Clinical correlation recommended.
2 Moderate hiatal hernia
3. Too small to characterize hypodense hepatic lesions likely small cysts or hemangiomas.
4. Few tiny gallstones
5. Severe diverticulosis.
6. Mild diffuse bladder wall thickening. This can be seen with cystitis and bladder outlet obstruction.
7. Mild prostate hypertrophy.
8. Severe atherosclerotic vascular disease.
#History of dementia
needs prompts for ADLs Dx 2023
#CVA chronic right parietal infarct on CT 07/20/2025
- Continue Eliquis
- Per met with neurologist no plan to add additional medications
#A-fib
Continue Eliquis 5 mg twice daily
CAD/NSTEMI
June 2022
HTN
Current meds
Aortic stenosis status post TAVR 03/17/2024
Arthritis unknown type
DVT prophylaxis
Continue [employer] M[employer] Eliquis
DNR per Monae at bedside
[2025-08-27 20:29] LABS: ALT (SGPT) 13 U/L (0-50); AST (SGOT) 28 U/L (17-59); Albumin 4.0 g/dl (3.5-5.0); Alkaline Phosphatase 66 U/L (38-126); Blood Urea Nitrogen 19 mg/dl (9-20); Calcium 9.0 mg/dl (8.4-10.2); Carbon Dioxide 25 mmol/L (22-30); Chloride 102 mmol/L (98-107); Glucose 98 mg/dl (70-99); Potassium 3.9 mmol/L (3.5-5.1); Sodium 135 mmol/L (135-145); Total Protein 6.8 g/dl (6.3-8.2); eGFR > 60.00
[2025-08-27 21:49] VITALS: BP 123/76
[2025-08-27 22:27] VITALS: BP 176/95; BMI 21.8
--- NOTE | 2025-08-27 23:00 | PTCARENOTE ---
Pt. admitted from E.D. with family, awake, alert, confused, vs stable, pt. pulled over from stretcher, bed alarm intact, call yoder within reach.
[2025-08-27 23:15] VITALS: BMI 21.8
[2025-08-28] VITALS (7 sets, daily range): BP systolic 148–173; BP diastolic 71–89; PULSE 71–74; O2SAT 98–99
[2025-08-28 08:33] LABS: Hematocrit 41.5 % (39.0-52.0); Hemoglobin 13.7 g/dL (13.0-18.0); Mean Corp Hgb Conc. 33.0 g/dL (33.0-37.0); Mean Corpuscular Volume 84.7 fL (80.0-94.0); Nucleated Red Blood Cells % 0 % (-); Platelet Count 233 10^3/uL (130-400); Red Cell Dist. Width 14.8 % (11.5-14.5)
--- NOTE | 2025-08-28 08:33 | W.PN.HOSP.TC ---
Today's Communication/Plan
-
Pending physical therapy evaluation.
Assessment / Plan
Assessment / Plan
Impression:
89-year-old male from home brought in due to persistent back pain after a unwitnessed fall several days ago. After his fall he has been complaining of lower back pain radiating around to his abdomen and has been his normal self. His states he
had difficulty following commands to get out of the car he tends to stare off on occasion. She reports security lifted him up into a wheelchair. She states he has history of new diagnosis dementia June 2025 by neurologist along with new right
parietal stroke on CT July [address] in 2023. He was found to have a T12 fracture in the ER with inability to ambulate due to pain. The patient denies headache, loss of consciousness, neck pain, chest pain, palpitations, cough,
shortness of breath, abdominal pain, nausea, vomiting, diarrhea, urinary symptoms.
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
Assessment/plan:
Unwitnessed fall with T12 fracture, intractable pain, ambulatory dysfunction
Chronic ambulatory dysfunction; uses walker at baseline for the past month
CT Abdomen/Pelvis (without contrast) findings:
Acute fracture of superior anterior T12 vertebral body (clinical correlation recommended)
Moderate hiatal hernia
Small hypodense hepatic lesions, likely cysts or hemangiomas
Few tiny gallstones
Severe diverticulosis
Mild diffuse bladder wall thickening (possible cystitis or bladder outlet obstruction)
Mild prostate hypertrophy
Severe atherosclerotic vascular disease
CT head shows:
1. No CT evidence for acute intracranial hemorrhage.
2. 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
3. Moderate-sized chronic transcortical infarct in the lateral right parietal lobe.
4. Small chronic transcortical infarct in the posterior left occipital lobe.
5. Small periventricular infarct in the right frontal lobe.
6. Moderate periventricular white matter leukoaraiosis in the parietal lobes.
Pain management:
Acetaminophen as needed for mild pain
Oxycodone for moderate pain
Held further dilaudid dosing due to somnolence
Initiate bowel regimen
Consult PT/OT and case management
History of dementia (diagnosed 2023)
Requires prompts for ADLs
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
Continue Eliquis.
Atrial fibrillation
Continue Eliquis 5 mg twice daily
Coronary artery disease / NSTEMI (June 2022)
Continue current management
Hypertension
Continue current medications
Aortic stenosis status post TAVR (03/17/2024)
Monitor.
Arthritis (type unknown)
Symptomatic management
Reactive leukocytosis.
Follow CBC
Elevated bilirubin.
Not clinically signet
CODE STATUS: DNR
DVT prophylaxis: Eliquis
Diet: Regular diet
Disposition: Pending PT evaluation.
Total time spent on today's encounter was 51 minutes which included time spent in counseling the patient/family regarding diagnosis and treatment plan as listed above, goals of care, and symptom management. Case was discussed with nursing staff,
specialists, and care coordinators/case management. All labs and imaging personally reviewed by me. Remainder the time spent in detailed review of previous records, lab data, imaging, and other medical provider documentation.
Anticipated Discharge: Within 24 hours
Subjective/Interval History
-
Date of Service: August 28, 2025
Patient seen and examined at bedside, with history secondary to underlying dementia denies any chest pain or shortness of breath, no back pain while resting in the bed.
Objective Data
-
Labs:
Laboratory Results
08/28/25
07:28
WBC Pending
Hgb Pending
Hct Pending
Plt Count Pending
Sodium Pending
Potassium Pending
Chloride Pending
Carbon Dioxide Pending
BUN Pending
Creatinine Pending
Glucose Pending
Calcium Pending
Total Bilirubin Pending
AST Pending
ALT Pending
Alkaline Phosphatase Pending
Vital Signs:
Vital Signs
Temp Pulse Resp BP Pulse Ox
97.7 F 89 16 170/89 100
08/28/25 07:56 08/28/25 07:56 08/28/25 07:56 08/28/25 07:56 08/28/25 07:56
Physical Exam
-
General: Well Developed, Well Nourished, No Apparent Distress and Comfortable
HEENT: Normocephalic, Atraumatic, Moist Mucous Membranes, No Ptosis, PERRLA and Nose Appears Normal
Respiratory: Clear to Auscultation and Non Labored Respirations
Cardiac: Regular Rhythm and S1/S2
Breast: Deferred by me
GI: Soft, Nontender, Nondistended and Normal Bowel Sounds
Genito-urinary: No Costovertebral Tender
Musculoskeletal: No Clubbing, No Cyanosis and No Edema
Skin: Warm
Neuro: Awake
Psych: Calm and Confused
Data Reviewed
-
Diagnostic Radiology: Image personally visualized and interpreted and Report Reviewed by me
CT Scan: Image personally visualized and interpreted and Report Reviewed by me
Ultrasound: Image personally visualized and interpreted and Report Reviewed by me
MRI: Image personally visualized and interpreted and Report Reviewed by me
Medical Tests (Nuc Med, Echo etc): Image personally visualized and interpreted and Report Reviewed by me
Labs: Labs Reviewed by me
Old Records: Reviewed
[2025-08-28] MEDS: LIDOCAINE 4% PATCH 1 PATCH TOPICAL (08:37)
[2025-08-28] MEDS: ELIQUIS 5 MG PO ×2 (08:37→21:28)
[2025-08-28 08:44] LABS: ALT (SGPT) 11 U/L (0-50); AST (SGOT) 26 U/L (17-59); Albumin 3.5 g/dl (3.5-5.0); Alkaline Phosphatase 62 U/L (38-126); Blood Urea Nitrogen 22 mg/dl (9-20); Calcium 8.7 mg/dl (8.4-10.2); Carbon Dioxide 25 mmol/L (22-30); Chloride 102 mmol/L (98-107); Estimated Creatinine Clearance 74 ml/min; Glucose 78 mg/dl (70-99); Sodium 136 mmol/L (135-145); Total Protein 6.1 g/dl (6.3-8.2); eGFR > 60.00
[2025-08-28 08:52] LABS: Potassium 4.1 mmol/L (3.5-5.1)
--- NOTE | 2025-08-28 16:21 | CM ---
CM reviewed chart, patient seen bedside with daughter, ELIAS Somers completed.
Patient resides with his in a two level home, one step to enter. Bedroom on second floor, stair glide in home.
Patient ambulatory with a RW- denies VN/SNF.
Daughter reports patients has been trying to get private caregivers in the home- provided list of caregivers.
CM discussed recommendation for home with therapy versus SNF- patient would like to discuss with his .
PCP Hollis Rees, [facility].
[facility] form verbally, provided with copy, placed in chart.
Update to Hospitalist.
CM will continue to follow for all d/c needs.
Plan; home with , VN/ caregivers verse SNF- patient to discuss with
[2025-08-28] MEDS: ROXICODONE 5 MG PO (22:32)
[2025-08-29] VITALS (9 sets, daily range): BP systolic 103–181; BP diastolic 70–122; PULSE 81–84
[2025-08-29] MEDS: LIDOCAINE 4% PATCH 1 PATCH TOPICAL (08:08)
[2025-08-29] MEDS: ELIQUIS 5 MG PO ×2 (08:08→20:11)
--- NOTE | 2025-08-29 11:29 | W.PN.HOSP.TC ---
Today's Communication/Plan
-
dispo planning
Assessment / Plan
Assessment / Plan
Impression:
89-year-old male from home brought in due to persistent back pain after a unwitnessed fall several days ago. After his fall he has been complaining of lower back pain radiating around to his abdomen and has been his normal self. His states he
had difficulty following commands to get out of the car he tends to stare off on occasion. She reports security lifted him up into a wheelchair. She states he has history of new diagnosis dementia June 2025 by neurologist along with new right
parietal stroke on CT July [address] in 2023. He was found to have a T12 fracture in the ER with inability to ambulate due to pain. The patient denies headache, loss of consciousness, neck pain, chest pain, palpitations, cough,
shortness of breath, abdominal pain, nausea, vomiting, diarrhea, urinary symptoms.
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
Assessment/plan:
Unwitnessed fall with T12 fracture, intractable pain, ambulatory dysfunction
Chronic ambulatory dysfunction; uses walker at baseline for the past month
CT Abdomen/Pelvis (without contrast) findings:
Acute fracture of superior anterior T12 vertebral body (clinical correlation recommended)
Moderate hiatal hernia
Small hypodense hepatic lesions, likely cysts or hemangiomas
Few tiny gallstones
Severe diverticulosis
Mild diffuse bladder wall thickening (possible cystitis or bladder outlet obstruction)
Mild prostate hypertrophy
Severe atherosclerotic vascular disease
CT head shows:
1. No CT evidence for acute intracranial hemorrhage.
2. 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
3. Moderate-sized chronic transcortical infarct in the lateral right parietal lobe.
4. Small chronic transcortical infarct in the posterior left occipital lobe.
5. Small periventricular infarct in the right frontal lobe.
6. Moderate periventricular white matter leukoaraiosis in the parietal lobes.
Pain management:
Acetaminophen as needed for mild pain
Oxycodone for moderate pain
Held further dilaudid dosing due to somnolence
Initiate bowel regimen
Consult PT/OT and case management
History of dementia (diagnosed 2023)
Requires prompts for ADLs
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
Continue Eliquis.
Atrial fibrillation
Continue Eliquis 5 mg twice daily
Coronary artery disease / NSTEMI (June 2022)
Continue current management
Hypertension
Continue current medications
Aortic stenosis status post TAVR (03/17/2024)
Monitor.
Arthritis (type unknown)
Symptomatic management
Reactive leukocytosis.
Follow CBC
Elevated bilirubin.
Not clinically signet
CODE STATUS: DNR
DVT prophylaxis: Eliquis
Diet: Regular diet
Disposition: home versus SNF
Total time spent on today's encounter was 51 minutes which included time spent in counseling the patient/family regarding diagnosis and treatment plan as listed above, goals of care, and symptom management. Case was discussed with nursing staff,
specialists, and care coordinators/case management. All labs and imaging personally reviewed by me. Remainder the time spent in detailed review of previous records, lab data, imaging, and other medical provider documentation.
Anticipated Discharge: Within 24 hours
Subjective/Interval History
-
Date of Service: August 29, 2025
states he feels pain is getting slowly better
Objective Data
-
Vital Signs:
Vital Signs
Temp Pulse Resp BP Pulse Ox
97.5 F 90 18 169/93 97
08/29/25 07:30 08/29/25 07:30 08/29/25 07:30 08/29/25 07:30 08/29/25 08:15
I&O
08/28/25 08/29/25 08/30/25
06:59 06:59 06:59
Intake Total 1200 / 1200
Output Total 275 / 275
Balance 925 / 925
Review of Systems
-
History Source: Patient
All other systems: Reviewed and negative
Physical Exam
-
General: Well Developed, Well Nourished, No Apparent Distress and Comfortable
HEENT: Normocephalic, Atraumatic, Moist Mucous Membranes, No Ptosis, PERRLA and Nose Appears Normal
Respiratory: Clear to Auscultation and Non Labored Respirations
Cardiac: Regular Rhythm and S1/S2
Breast: Deferred by me
GI: Soft, Nontender, Nondistended and Normal Bowel Sounds
Genito-urinary: No Costovertebral Tender
Musculoskeletal: No Clubbing, No Cyanosis and No Edema
Skin: Warm
Neuro: Awake
Psych: Calm and Confused
Data Reviewed
-
Diagnostic Radiology: Report Reviewed by me
Labs: Labs Reviewed by me
--- NOTE | 2025-08-29 12:46 | CM ---
Addendum entered by Cristine Avitia 08/29/25 16:39:
CM working on SNF for patient. Patient accepted to [facility] and [facility] [place]. Spoke with patient's - her preference is [facility].
Original Note:
CM spoke with patient's , Monae Abel by telephone. Discussed PT recommendation for 24 care/supervision vs. SNF. Patient's feels that patient's functional status has declined since having fall and T12 fx, and she would prefer SNF for upon
discharge. She has requested referrals to [facility], [facility], [facility], [facility] and [facility] [place]. CM placed referrals in [facility]. Will need SNF auth from patient's insurance.
Plan: SNF, insurance auth needed
[2025-08-29] MEDS: ROXICODONE 5 MG PO (15:00)
[2025-08-29] MEDS: TYLENOL 1000 MG PO ×2 (15:00→22:37)
[2025-08-30] VITALS (8 sets, daily range): BP systolic 120–182; BP diastolic 63–116
--- NOTE | 2025-08-30 00:18 | PTCARENOTE ---
Patient`s blood pressure was 177/96 HR 99. RN rechecked blood pressure at 0015 and blood pressure was 173/100, heart rate was 93. Patient denies symptoms or pain. SUNNY Contreras made aware, no new orders.
[2025-08-30] MEDS: ROXICODONE 5 MG PO (05:23)
[2025-08-30] MEDS: ELIQUIS 5 MG PO (07:38)
[2025-08-30] MEDS: TYLENOL 1000 MG PO ×3 (07:38→21:10)
[2025-08-30] MEDS: LIDOCAINE 4% PATCH 1 PATCH TOPICAL (07:38)
--- NOTE | 2025-08-30 10:53 | W.PN.HOSP.TC ---
Addendum entered and electronically signed by Veronika Almaguer MD 08/30/25 11:51:
VBG OK, WBC elevated
-will do infectious work-up: flu, covid, UA, CXR
-patient remains sedated, not keeping eyes open. will also repeat head CT
Original Note:
Today's Communication/Plan
-
follow up labs including VBG
stop further oxycodone
gentle IVF 500 bag
monitor mental status
IR consult to consider vertebroplasty
Assessment / Plan
Assessment / Plan
Impression:
89-year-old male from home brought in due to persistent back pain after a unwitnessed fall several days ago. After his fall he has been complaining of lower back pain radiating around to his abdomen and has been his normal self. His states he
had difficulty following commands to get out of the car he tends to stare off on occasion. She reports security lifted him up into a wheelchair. She states he has history of new diagnosis dementia June 2025 by neurologist along with new right
parietal stroke on CT July [address] in 2023. He was found to have a T12 fracture in the ER with inability to ambulate due to pain. The patient denies headache, loss of consciousness, neck pain, chest pain, palpitations, cough,
shortness of breath, abdominal pain, nausea, vomiting, diarrhea, urinary symptoms.
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
Assessment/plan:
Unwitnessed fall with T12 fracture, intractable pain, ambulatory dysfunction
Chronic ambulatory dysfunction; uses walker at baseline for the past month
CT Abdomen/Pelvis (without contrast) findings:
Acute fracture of superior anterior T12 vertebral body (clinical correlation recommended)
Moderate hiatal hernia
Small hypodense hepatic lesions, likely cysts or hemangiomas
Few tiny gallstones
Severe diverticulosis
Mild diffuse bladder wall thickening (possible cystitis or bladder outlet obstruction)
Mild prostate hypertrophy
Severe atherosclerotic vascular disease
CT head shows:
1. No CT evidence for acute intracranial hemorrhage.
2. 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
3. Moderate-sized chronic transcortical infarct in the lateral right parietal lobe.
4. Small chronic transcortical infarct in the posterior left occipital lobe.
5. Small periventricular infarct in the right frontal lobe.
6. Moderate periventricular white matter leukoaraiosis in the parietal lobes.
Pain management:
Acetaminophen made standing
stop Oxycodone 2/2 severe sedation (see below)
Given severe pain and intolerance to opiates - I will consult IR to consider vertebroplasty
Initiate bowel regimen
Consult PT/OT and case management
TME 2/2 opiate use
-patient is very sedated this morning. He received oxycodone earlier this morning
-check labs including VBG, not eating will start gentle fluids
History of dementia (diagnosed 2023)
Requires prompts for ADLs
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
Continue Eliquis.
Atrial fibrillation
Continue Eliquis 5 mg twice daily
Coronary artery disease / NSTEMI (June 2022)
Continue current management
Hypertension
Continue current medications
Aortic stenosis status post TAVR (03/17/2024)
Monitor.
Arthritis (type unknown)
Symptomatic management
Reactive leukocytosis.
Follow CBC
Elevated bilirubin.
Not clinically signet
CODE STATUS: DNR
DVT prophylaxis: Eliquis
Diet: Regular diet
Disposition: eventual SNF
Total time spent on today's encounter was 51 minutes which included time spent in counseling the patient/family regarding diagnosis and treatment plan as listed above, goals of care, and symptom management. Case was discussed with nursing staff,
specialists, and care coordinators/case management. All labs and imaging personally reviewed by me. Remainder the time spent in detailed review of previous records, lab data, imaging, and other medical provider documentation.
Anticipated Discharge: 24 - 48 hours
Subjective/Interval History
-
Date of Service: August 30, 2025
patient is very sedated this morning
Objective Data
-
Labs:
Laboratory Results
08/30/25
10:37
WBC Pending
Hgb Pending
Hct Pending
Plt Count Pending
Sodium Pending
Potassium Pending
Chloride Pending
Carbon Dioxide Pending
BUN Pending
Creatinine Pending
Glucose Pending
Calcium Pending
Vital Signs:
Vital Signs
Temp Pulse Resp BP Pulse Ox
98.8 F 93 18 130/78 97
08/30/25 07:25 08/30/25 08:55 08/30/25 07:25 08/30/25 08:55 08/30/25 07:25
I&O
08/29/25 08/30/25 08/31/25
06:59 06:59 06:59
Intake Total 1200 / 1200 600 / 600
Output Total 275 / 275 480 / 480
Balance 925 / 925 120 / 120
Review of Systems
-
Unable to obtain full review of systems at this time due to: Dementia
History Source: Patient
Physical Exam
-
General: Other (very sedated this morning, responsive to sternal rub )
HEENT: Normocephalic, Atraumatic, PERRLA and Nose Appears Normal
Respiratory: Clear to Auscultation and Non Labored Respirations
Cardiac: Regular Rhythm and S1/S2
Breast: Deferred by me
GI: Soft, Nontender, Nondistended and Normal Bowel Sounds
Genito-urinary: No Costovertebral Tender
Musculoskeletal: No Clubbing, No Cyanosis and No Edema
Skin: Warm
Neuro: Sedated
Psych: Calm
Data Reviewed
-
Diagnostic Radiology: Report Reviewed by me
Labs: Labs Reviewed by me
[2025-08-30] MEDS: D5LR 500 IV (11:13)
[2025-08-30 11:21] LABS: Venous Blood Gas B.E. 1.2 mmol/L (-4 to +4); Venous Blood Gas O2 Sat % 94.0 %
[2025-08-30 11:38] LABS: Hematocrit 42.2 % (39.0-52.0); Hemoglobin 14.4 g/dL (13.0-18.0); Mean Corp Hgb Conc. 34.1 g/dL (33.0-37.0); Mean Corpuscular Volume 84.6 fL (80.0-94.0); Platelet Count 234 10^3/uL (130-400); Red Cell Dist. Width 14.9 % (11.5-14.5)
[2025-08-30 11:49] LABS: Blood Urea Nitrogen 22 mg/dl (9-20); Calcium 8.8 mg/dl (8.4-10.2); Carbon Dioxide 27 mmol/L (22-30); Chloride 103 mmol/L (98-107); Estimated Creatinine Clearance 63 ml/min; Glucose 115 mg/dl (70-99); Magnesium 1.6 mg/dl (1.6-2.3); Potassium 4.0 mmol/L (3.5-5.1); Sodium 135 mmol/L (135-145); eGFR > 60.00
--- NOTE | 2025-08-30 12:12 | CM ---
CM obtained SNF and ambulance authorizations from [facility] for patient to go to [facility]. However, patient is not stable for transfer today.
SNF auth- approved 7 days skilled (08/30- 09/05/25) auth #[id number]
ambulance auth# [id number]
[facility]
# for report- [phone] ext [phone]
[id number]
Plan: [facility] when stable, will need to update insurance authorizations
[2025-08-30 12:34] LABS: Urine Character Clear (Clear)
[2025-08-30 12:52] LABS: Urine Red Blood Cell 30-40 /HPF (0-2)
[2025-08-30 12:53] LABS: Urine White Cell 16-20 /HPF (0-5)
[2025-08-30 12:54] LABS: Urine Squamous Cell 0-2 /LPF (Few)
[2025-08-30 13:43] LABS: COVID-19 Antigen Negative (Negative)
[2025-08-30] MEDS: FLUSH (NSS) 1 FLUSH IV (13:43)
[2025-08-30] MEDS: STERILE WATER FOR INJECTION 10 ML IV (13:44)
[2025-08-30] MEDS: ROCEPHIN 1000 MG IV (13:44)
--- NOTE | 2025-08-30 13:44 | W.PN.UPDATE ---
Update Note
Progress Note Update
patient remains sedated but arousable. He was able to walk from stretcher to bed for CT. He can follow commands, but not answering questions verbally.
HEAD CT
IMPRESSION:
Stable chronic findings, as described. No acute intracranial abnormality. Specifically, no acute intercranial hemorrhage or evidence to suggest acute large vascular territory transcortical infarct at this time.
CXR
IMPRESSION:
Findings suspicious for mild bibasilar pneumonia.
UA with 16-20 WBC. With elevated WBC and AMS will start IV Ceftriaxone for possible UTI. Patient without respiratory changes or cough, suspect CXR more likely atelectasis. Add further antibiotic for atypical coverage if spikes fever.
Patient is not eating, D5LR running. If doesn't wake up for dinner, will need to continue IVF overnight.
IR to evaluate patient for Vertebroplasty. I have stopped Eliquis for possible procedure.
Stop all opiates - patient is very sensitive and too lethargic to receive any more.
Continue Tylenol, lidocaine patch and can have heat pad to help with pain while awaiting vertebroplasty.
Given TME 2/2 UTI, transferred to inpatient care.
--- NOTE | 2025-08-30 16:16 | CON.IR ---
Consultation
-
Date/Time Consultation Requested: 08/30/25
Date/Time Consultation Performed: 08/30/25
Requesting Provider: Dr. Almaguer
Performing Provider: Diana Phillips PA-C
Reason for Consultation: T12 vertebroplasty
Medical History
-
Chief Complaint: Back pain, worse with sitting.
History of Present Illness:
Pt fell from standing while at home and had persistent back pain.
Past Medical History
Past Medical History: Arrhythmias (Afib), CAD (Hx NSTEMI), HTN, Valvular Disease (Mitral regurgitation) and Other (Hx TIA's)
Past Surgical History: Other (TAVR)
Social History
Tobacco: Non-Smoker
Personal:
Living: With Family
Family History
Family History: Reviewed & Not Pertinent
Allergies / Home Medications
Allergy/AdvReac Type Severity Reaction Status Date / Time
No Known Allergies Allergy Verified 08/27/25 16:37
�Medication �Instructions �Recorded �Confirmed �Type
apixaban 5 mg tablet (Eliquis) 5 mg PO BID Blood clot 05/09/20 08/27/25 History
prevention/tx
Review of Systems
-
Unable to obtain full review of systems at this time due to: Dementia (Pt ambulatory at baseline, can feed and toilet self but sometimes needs some re-direction/assistance. Currently he is sleeping and difficult to keep awake presumably secondary to
narcotic pain meds that were given.)
History Source: Family (Pt's and daughter.)
All other systems: Negative unless noted
Musculoskeletal: Reports Other (Back pain intensified with sitting)
Physical Exam
Vital Signs
Temp Pulse Resp BP Pulse Ox
97.4 F 78 16 138/63 96
08/30/25 15:48 08/30/25 15:48 08/30/25 15:48 08/30/25 15:48 08/30/25 15:48
Lab Results
08/30/25 11:06
08/30/25 11:06
Physical Exam
General: No Apparent Distress (Difficult to keep awake. Currently sleeping throughout entire consultation.)
HEENT: Anicteric
Respiratory: Clear
Cardiac: Irregular Rhythm
Breast: Deferred by me
GI: Soft
Rectal: Deferred by Provider
Skin: Warm and Dry
Neuro: Sedated
Assessment / Plan
-
Discussed vertebrosplasty procedure with pt's and daughter. They would like to proceed with procedure. They are aware that this will most likely take place on Friday with the assistance of anesthesia once pt's Eliquis has been held for a total
of 4 doses
Data Reviewed
-
CT Scan: Discussed with Physician (Imaging reviewed by Dr. Cuellar)
[2025-08-31] VITALS (9 sets, daily range): BP systolic 149–185; BP diastolic 68–102
[2025-08-31 07:23] LABS: Hematocrit 38.5 % (39.0-52.0); Hemoglobin 12.9 g/dL (13.0-18.0); Mean Corp Hgb Conc. 33.5 g/dL (33.0-37.0); Mean Corpuscular Volume 84.1 fL (80.0-94.0); Platelet Count 206 10^3/uL (130-400); Red Cell Dist. Width 14.9 % (11.5-14.5)
[2025-08-31 07:45] LABS: INR 1.49; PT 17.7 Sec (11.4-14.6)
[2025-08-31 07:53] LABS: Blood Urea Nitrogen 18 mg/dl (9-20); Calcium 8.4 mg/dl (8.4-10.2); Carbon Dioxide 29 mmol/L (22-30); Chloride 100 mmol/L (98-107); Estimated Creatinine Clearance 74 ml/min; Glucose 89 mg/dl (70-99); Potassium 3.6 mmol/L (3.5-5.1); Sodium 133 mmol/L (135-145); eGFR > 60.00
[2025-08-31 08:03] LABS: Procalcitonin 1.60 ng/ml (0.0-0.25)
[2025-08-31] MEDS: TYLENOL 1000 MG PO ×3 (08:06→21:32)
[2025-08-31] MEDS: LIDOCAINE 4% PATCH 1 PATCH TOPICAL (08:07)
[2025-08-31] MEDS: ROCEPHIN 1000 MG IV (14:01)
[2025-08-31] MEDS: STERILE WATER FOR INJECTION 10 ML IV (14:02)
[2025-08-31] MEDS: FLUSH (NSS) 2 FLUSH IV (14:03)
--- NOTE | 2025-08-31 14:08 | W.PN.HOSP.TC ---
Today's Communication/Plan
-
Continue Rocephin.
Continue to hold Eliquis.
Monitor mental status
Assessment / Plan
Assessment / Plan
Impression:
89-year-old male from home brought in due to persistent back pain after a unwitnessed fall several days ago. After his fall he has been complaining of lower back pain radiating around to his abdomen and has been his normal self. His states he
had difficulty following commands to get out of the car he tends to stare off on occasion. She reports security lifted him up into a wheelchair. She states he has history of new diagnosis dementia June 2025 by neurologist along with new right
parietal stroke on CT July [address] in 2023. He was found to have a T12 fracture in the ER with inability to ambulate due to pain. The patient denies headache, loss of consciousness, neck pain, chest pain, palpitations, cough,
shortness of breath, abdominal pain, nausea, vomiting, diarrhea, urinary symptoms.
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
Patient became very lethargic after receiving opioids and plan was for vertebroplasty, Eliquis held.
Started on rocephin
Assessment/plan:
Unwitnessed fall with T12 fracture, intractable pain, ambulatory dysfunction
Chronic ambulatory dysfunction; uses walker at baseline for the past month
CT Abdomen/Pelvis (without contrast) findings:
Acute fracture of superior anterior T12 vertebral body (clinical correlation recommended)
Moderate hiatal hernia
Small hypodense hepatic lesions, likely cysts or hemangiomas
Few tiny gallstones
Severe diverticulosis
Mild diffuse bladder wall thickening (possible cystitis or bladder outlet obstruction)
Mild prostate hypertrophy
Severe atherosclerotic vascular disease
CT head shows:
1. No CT evidence for acute intracranial hemorrhage.
2. 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
3. Moderate-sized chronic transcortical infarct in the lateral right parietal lobe.
4. Small chronic transcortical infarct in the posterior left occipital lobe.
5. Small periventricular infarct in the right frontal lobe.
6. Moderate periventricular white matter leukoaraiosis in the parietal lobes.
Pain management:
Acetaminophen made standing
stop Oxycodone 2/2 severe sedation (see below)
Given severe pain and intolerance to opiates - consulted IR to consider vertebroplasty
Initiate bowel regimen
Consult PT/OT and case management
08/31
stated that she does not want to proceed with vertebroplasty.
Requested to resume Eliquis.
Discussed in more details that might be needed.
Will continue to hold Eliquis for next 24 hours and reevaluate tomorrow.
TME 2/2 opiate use
-patient is very sedated this morning. He received oxycodone earlier this morning
-check labs including VBG, not eating will start gentle fluids
08/31
improved
History of dementia (diagnosed 2023)
Requires prompts for ADLs
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
Continue Eliquis.
Atrial fibrillation
Continue Eliquis 5 mg twice daily
Coronary artery disease / NSTEMI (June 2022)
Continue current management
Hypertension
Continue current medications
Aortic stenosis status post TAVR (03/17/2024)
Monitor.
Arthritis (type unknown)
Symptomatic management
Reactive leukocytosis.
Follow CBC
Elevated bilirubin.
Not clinically signet
CODE STATUS: DNR
DVT prophylaxis: Eliquis
Diet: Regular diet
Disposition: eventual SNF
Total time spent on today's encounter was 55 minutes which included time spent in counseling the patient/family regarding diagnosis and treatment plan as listed above, goals of care, and symptom management. Case was discussed with nursing staff,
specialists, and care coordinators/case management. All labs and imaging personally reviewed by me. Remainder the time spent in detailed review of previous records, lab data, imaging, and other medical provider documentation.
Anticipated Discharge: 24 - 48 hours
Subjective/Interval History
-
Date of Service: August 31, 2025
Patient seen and examined at bedside, denies any chest pain or shortness of breath, more awake and complaining of back pain.
Objective Data
-
Labs:
Laboratory Results
08/31/25
07:07
WBC 10.6
Hgb 12.9 L
Hct 38.5 L
Plt Count 206
PT 17.7 H
INR 1.49
Sodium 133 L
Potassium 3.6
Chloride 100
Carbon Dioxide 29
BUN 18
Creatinine 0.5 L
Glucose 89
Calcium 8.4
Vital Signs:
Vital Signs
Temp Pulse Resp BP Pulse Ox
97.4 F 89 16 151/76 98
08/31/25 11:33 08/31/25 11:33 08/31/25 11:33 08/31/25 11:33 08/31/25 11:33
I&O
08/30/25 08/31/25 09/01/25
06:59 06:59 06:59
Intake Total 600 / 600 800 / 800
Output Total 480 / 480 500 / 500 150 / 150
Balance 120 / 120 300 / 300 -150 / -150
Physical Exam
-
General: Well Developed, Well Nourished, No Apparent Distress and Comfortable
HEENT: Normocephalic, Atraumatic, Moist Mucous Membranes, No Ptosis, PERRLA and Nose Appears Normal
Respiratory: Clear to Auscultation and Non Labored Respirations
Cardiac: Regular Rhythm and S1/S2
Breast: Deferred by me
GI: Soft, Nontender, Nondistended and Normal Bowel Sounds
Genito-urinary: No Costovertebral Tender
Musculoskeletal: No Clubbing, No Cyanosis and No Edema
Skin: Warm
Neuro: Awake
Psych: Calm and Confused
[2025-08-31 22:32] LABS: Blood Urea Nitrogen 16 mg/dl (9-20); Calcium 8.5 mg/dl (8.4-10.2); Carbon Dioxide 27 mmol/L (22-30); Chloride 101 mmol/L (98-107); Estimated Creatinine Clearance 74 ml/min; Glucose 93 mg/dl (70-99); Magnesium 1.8 mg/dl (1.6-2.3); Potassium 3.7 mmol/L (3.5-5.1); Sodium 132 mmol/L (135-145); eGFR > 60.00
[2025-08-31] MEDS: MAGNESIUM OXIDE 400 MG PO (22:56)
[2025-08-31] MEDS: KCL 10 MEQ PO (22:56)
--- NOTE | 2025-08-31 22:58 | PTCARENOTE ---
tele monitor alarmed 15 beats Vtach. pt asymptomatic and VSS. CUSTODIAN BLOOD BANK notified. BMP and mag ordered. mag and K borderline low, CUSTODIAN BLOOD BANK ordered oral mag and K. Plan of care ongoing.
[2025-09-01] VITALS (11 sets, daily range): BP systolic 150–174; BP diastolic 72–86; PULSE 92; O2SAT 99
--- NOTE | 2025-09-01 03:13 | W.PN.UPDATE ---
Update Note
Progress Note Update
2129 RN reports 15 beat NSVT
BMP and mag ordered.
2229 K 3.7 and mag 1.8 --> will replete for goal K>4 and mag >2
[2025-09-01] MEDS: LIDOCAINE 4% PATCH 1 PATCH TOPICAL (07:37)
[2025-09-01] MEDS: TYLENOL 1000 MG PO ×3 (07:37→21:35)
[2025-09-01 09:13] LABS: Hematocrit 41.0 % (39.0-52.0); Hemoglobin 13.6 g/dL (13.0-18.0); Mean Corp Hgb Conc. 33.2 g/dL (33.0-37.0); Mean Corpuscular Volume 86.1 fL (80.0-94.0); Platelet Count 258 10^3/uL (130-400); Red Cell Dist. Width 14.8 % (11.5-14.5)
[2025-09-01 09:26] LABS: Blood Urea Nitrogen 16 mg/dl (9-20); Calcium 8.7 mg/dl (8.4-10.2); Carbon Dioxide 28 mmol/L (22-30); Chloride 102 mmol/L (98-107); Estimated Creatinine Clearance 74 ml/min; Glucose 83 mg/dl (70-99); Potassium 3.9 mmol/L (3.5-5.1); Sodium 137 mmol/L (135-145); eGFR > 60.00
[2025-09-01] MEDS: TORADOL IV (11:46)
[2025-09-01] MEDS: TORADOL 15 MG IV (13:37)
[2025-09-01] MEDS: STERILE WATER FOR INJECTION 10 ML IV (13:38)
[2025-09-01] MEDS: ROCEPHIN 1000 MG IV (13:39)
[2025-09-01] MEDS: FLUSH (NSS) 1 FLUSH IV (13:39)
--- NOTE | 2025-09-01 14:11 | W.PN.HOSP.TC ---
Today's Communication/Plan
-
Cardiology consult.
Resume Eliquis.
Cancel vertebroplasty
Assessment / Plan
Assessment / Plan
Impression:
89-year-old male from home brought in due to persistent back pain after a unwitnessed fall several days ago. After his fall he has been complaining of lower back pain radiating around to his abdomen and has been his normal self. His states he
had difficulty following commands to get out of the car he tends to stare off on occasion. She reports security lifted him up into a wheelchair. She states he has history of new diagnosis dementia June 2025 by neurologist along with new right
parietal stroke on CT July [address] in 2023. He was found to have a T12 fracture in the ER with inability to ambulate due to pain. The patient denies headache, loss of consciousness, neck pain, chest pain, palpitations, cough,
shortness of breath, abdominal pain, nausea, vomiting, diarrhea, urinary symptoms.
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
Patient became very lethargic after receiving opioids and plan was for vertebroplasty, Eliquis held.
Started on rocephin
Met with the cath who requested to cancel vertebroplasty.
Assessment/plan:
Unwitnessed fall with T12 fracture, intractable pain, ambulatory dysfunction
Chronic ambulatory dysfunction; uses walker at baseline for the past month
CT Abdomen/Pelvis (without contrast) findings:
Acute fracture of superior anterior T12 vertebral body (clinical correlation recommended)
Moderate hiatal hernia
Small hypodense hepatic lesions, likely cysts or hemangiomas
Few tiny gallstones
Severe diverticulosis
Mild diffuse bladder wall thickening (possible cystitis or bladder outlet obstruction)
Mild prostate hypertrophy
Severe atherosclerotic vascular disease
CT head shows:
1. No CT evidence for acute intracranial hemorrhage.
2. 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
3. Moderate-sized chronic transcortical infarct in the lateral right parietal lobe.
4. Small chronic transcortical infarct in the posterior left occipital lobe.
5. Small periventricular infarct in the right frontal lobe.
6. Moderate periventricular white matter leukoaraiosis in the parietal lobes.
Pain management:
Acetaminophen made standing
stop Oxycodone 2/2 severe sedation (see below)
Given severe pain and intolerance to opiates - consulted IR to consider vertebroplasty
Initiate bowel regimen
Consult PT/OT and case management
08/31
stated that she does not want to proceed with vertebroplasty.
Requested to resume Eliquis.
Discussed in more details that might be needed.
Will continue to hold Eliquis for next 24 hours and reevaluate tomorrow.
09/01
Will continue to try with Toradol.
Will discuss with the print support specialist today regarding any additional input.
Resume Eliquis, elected against vertebroplasty
Pulm atrial fibrillation
Nonsustained V. tach
Resume Eliquis 5 mg twice daily
Will obtain cardiology consult
TME 2/2 opiate use
-patient is very sedated this morning. He received oxycodone earlier this morning
-check labs including VBG, not eating will start gentle fluids
08/31
improved
History of dementia (diagnosed 2023)
Requires prompts for ADLs
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
Continue Eliquis.
Coronary artery disease / NSTEMI (June 2022)
Continue current management
Hypertension
Continue current medications
Aortic stenosis status post TAVR (03/17/2024)
Monitor.
Arthritis (type unknown)
Symptomatic management
Reactive leukocytosis.
Follow CBC
Elevated bilirubin.
Not clinically signet
CODE STATUS: DNR
DVT prophylaxis: Eliquis
Diet: Regular diet
Family communication: Discussed with at bedside along with nurse manager infusion
Disposition: Cardiology consult.
Resume Eliquis.
Cancel vertebroplasty
Total time spent on today's encounter was 55 minutes which included time spent in counseling the patient/family regarding diagnosis and treatment plan as listed above, goals of care, and symptom management. Case was discussed with nursing staff,
specialists, and care coordinators/case management. All labs and imaging personally reviewed by me. Remainder the time spent in detailed review of previous records, lab data, imaging, and other medical provider documentation.
Anticipated Discharge: > 48 hours
Subjective/Interval History
-
Date of Service: September 01, 2025
Patient seen and examined at bedside, denies any chest pain or shortness of breath, back pain improved.
Objective Data
-
Labs:
Laboratory Results
09/01/25
06:43
WBC 9.6
Hgb 13.6
Hct 41.0
Plt Count 258 D
Sodium 137
Potassium 3.9
Chloride 102
Carbon Dioxide 28
BUN 16
Creatinine 0.5 L
Glucose 83
Calcium 8.7
Vital Signs:
Vital Signs
Temp Pulse Resp BP Pulse Ox
97.7 F 71 18 162/78 99
09/01/25 11:33 09/01/25 11:53 09/01/25 11:33 09/01/25 11:53 09/01/25 11:33
I&O
08/31/25 09/01/25 09/02/25
06:59 06:59 06:59
Intake Total 800 / 800 920 / 920
Output Total 500 / 500 1150 / 1150
Balance 300 / 300 -230 / -230
Physical Exam
-
General: Well Developed, Well Nourished, No Apparent Distress and Comfortable
HEENT: Normocephalic, Atraumatic, Moist Mucous Membranes, No Ptosis, PERRLA and Nose Appears Normal
Respiratory: Clear to Auscultation and Non Labored Respirations
Cardiac: Regular Rhythm and S1/S2
Breast: Deferred by me
GI: Soft, Nontender, Nondistended and Normal Bowel Sounds
Genito-urinary: No Costovertebral Tender
Musculoskeletal: No Clubbing, No Cyanosis and No Edema
Skin: Warm
Neuro: Awake
Psych: Calm and Confused (Less confused)
[2025-09-01] MEDS: TOPROL XL 12.5 MG PO (16:22)
--- NOTE | 2025-09-01 16:24 | CM ---
CM met with patient and his at bedside. Patient is no longer having vertebroplasty. Cardiology has been consulted. PT remedios on 09/01 continues to recommend SNf. Patient's still wants [facility] SNF upon d/c. Updated referral sent to
[facility]. Will need to update insurance auth form IBC when patient is ready.
Plan: [facility] when stable
--- NOTE | 2025-09-01 16:41 | CON.CAR ---
Addendum entered and electronically signed by Pravin Javier MD 09/01/25 17:24:
Patient seen and examined
Agree with LITO Last's note and assessment
Agree with LITO Last's plan
Reviewed telemetry demonstrating a 15 beat run of asymptomatic nonsustained VT
Persistent atrial fibrillation noted
Reviewed the patient's treatment plan and recent office note from February [address] Mckeon.
Spoke with patient and daughter at the bedside. Also took time to review goals of care.
Exam:
Nonfocal neurologically
HEENT normocephalic atraumatic
JVP 6
Cor irregularly irregular 1 out of 6 systolic ejection murmur
Lungs diminished but clear
Abdomen soft nontender positive bowel sounds
His fracture and trauma pain is noted
Extremities no extremity edema
Remainder of examination as per LITO Last's note
Impression:
Admitted with fall and ambulatory dysfunction 08/27/2025
Fall and ambulatory dysfunction
T12 vertebral fracture
NSVT
15 beat episode seen at 2111 on 08/31/2025Permanent A-fib
Chronic Eliquis OAC
h/o CVA
s/p TAVR for severe at [facility] 03/17/2024
TME
Dementia
Hypokalemia
Hypomagnesemia
Echo 04/13/2024: EF 50%, stage II diastolic dysfunction, prolapse of the posterior mitral leaflet, moderate MR, s/p TAVR with peak/mean 7/4 mmHg, mild TR
Echo 09/01/2025: Study pending
Plan:
-Patient was admitted with fall and ambulatory dysfunction on 08/27/2025 and cardiology is now consulted for a 15 beat run of NSVT seen on telemetry last night. Patient had a fall a few days before coming to the ER due to symptoms of ongoing back
pain and inability to ambulate. Patient was admitted with a T12 vertebral compression fracture. Patient has been undergoing pain management and PT/OT. On telemetry patient had a 15 beat run of NSVT at 2111 last night, unclear if he was
symptomatic house COST ACCOUNTING MANAGER saw the patient and his potassium was 3.7 and magnesium 1.8, supplementation was ordered. Cardiology is now consulted. Patient has a history of a TAVR at [facility] in 2023 and has a history of permanent A-fib and is on chronic
Eliquis as an outpatient, but that dosing is held while he is admitted here with a fall and compression fracture.
- We ordered an ECG, and we will check an echocardiogram to assess the prior TAVR
-Telemetry reviewed by me shows a 15 beat run of NSVT and overall rate controlled A-fib with occasional pauses less than 2 to 3 seconds.
-Magnesium was 1.8 and potassium 3.7 at the time of NSVT. Patient was given magnesium oxide 400 mg PO x 1 and KCl 10 mEq PO x 1 at that time. Repeat labs 09/01/2025 show potassium improved a bit to 3.9 and magnesium level was not repeated.
-KCl 40 mEq PO x 1 now and then 20 mEq daily ordered by me.
-Magnesium oxide 400 mg daily ordered by me
-Repeat BMP and magnesium level in the a.m., orders placed by me
-Check echo, ordered by me. EF was preserved to 50% by echo 04/13/2024.
-Would not add AV carmelita guy therapy due to permanent atrial arrhythmia with slow ventricular response.
Original Note:
Consultation
Consultation Request
Date/Time Consultation Requested: 09/01/2025
Date/Time Consultation Performed: 09/01/2025
Requesting Provider: Dr. Marques Ro
Performing Provider: Dr. Javier
Reason for Consultation: NSVT
Medical History
-
History of Present Illness:
Patient was admitted with fall and ambulatory dysfunction on 08/27/2025 and cardiology is now consulted for a 15 beat run of NSVT seen on telemetry last night. Patient had a fall a few days before coming to the ER due to symptoms of ongoing back
pain and inability to ambulate. Patient was admitted with a T12 vertebral compression fracture. Patient has been undergoing pain management and PT/OT. On telemetry patient had a 15 beat run of NSVT at 2111 last night, unclear if he was
symptomatic house COST ACCOUNTING MANAGER saw the patient and his potassium was 3.7 and magnesium 1.8, supplementation was ordered. Cardiology is now consulted. Patient has a history of a TAVR at [facility] in 2023 and has a history of permanent A-fib and is on chronic
Eliquis as an outpatient, but that dosing is held while he is admitted here with a fall and compression fracture.
PMH:
Permanent A-fib
Chronic Eliquis OAC
h/o CVA
s/p TAVR for severe at [facility] 03/17/2024
Dementia
Past Medical History
Past Medical History: Other (In HPI)
Past Surgical History: Cardiac (Atrial flutter ablation 05/09/2020, TAVR at [facility] 03/17/2024,)
Social History
Tobacco: Former Smoker (Smoked age [age])
Alcohol: Occasional (1 glass of wine a few days a week)
Drug: None
Personal:
Living: With Family
Family History
Family History: CAD
Allergies / Home Medications
Allergy/AdvReac Type Severity Reaction Status Date / Time
No Known Allergies Allergy Verified 08/27/25 16:37
�Medication �Instructions �Recorded �Confirmed �Type
apixaban 5 mg tablet (Eliquis) 5 mg PO BID Blood clot 05/09/20 08/27/25 History
prevention/tx
Review of Systems
-
History Source: Patient
All other systems: Negative unless noted
Physical Exam
Vital Signs
Temp Pulse Resp BP Pulse Ox
97.4 F 78 16 169/76 100
09/01/25 15:40 09/01/25 15:40 09/01/25 15:40 09/01/25 16:22 09/01/25 15:40
GEN: NAD. AAO x 3
HEENT: EOMI, MMM
LUNGS: RA. No audible wheeze
CV: Atrial fibrillation and flutter on telemetry. Irreg reg, 2/6 systolic harsh murmur, no rubs or gallops
ABD: ND
EXT: No edema B/L LE
NEURO: Gross non-focal
SKIN: No rash, warm, dry, pink
Lab Results
09/01/25 06:43
09/01/25 06:43
Impression / Plan
-
PCP: Dr. Rees
Cardiology: Dr. STEPH Mckeon
Impression:
Admitted with fall and ambulatory dysfunction 08/27/2025
Fall and ambulatory dysfunction
T12 vertebral fracture
NSVT
15 beat episode seen at 2111 on 08/31/2025
Permanent A-fib
Chronic Eliquis OAC
h/o CVA
s/p TAVR for severe at [facility] 03/17/2024
TME
Dementia
Hypokalemia
Hypomagnesemia
Echo 04/13/2024: EF 50%, stage II diastolic dysfunction, prolapse of the posterior mitral leaflet, moderate MR, s/p TAVR with peak/mean 7/4 mmHg, mild TR
Echo 09/01/2025: Study pending
Plan:
-Patient was admitted with fall and ambulatory dysfunction on 08/27/2025 and cardiology is now consulted for a 15 beat run of NSVT seen on telemetry last night. Patient had a fall a few days before coming to the ER due to symptoms of ongoing back
pain and inability to ambulate. Patient was admitted with a T12 vertebral compression fracture. Patient has been undergoing pain management and PT/OT. On telemetry patient had a 15 beat run of NSVT at 2111 last night, unclear if he was
symptomatic house COST ACCOUNTING MANAGER saw the patient and his potassium was 3.7 and magnesium 1.8, supplementation was ordered. Cardiology is now consulted. Patient has a history of a TAVR at [facility] in 2023 and has a history of permanent A-fib and is on chronic
Eliquis as an outpatient, but that dosing is held while he is admitted here with a fall and compression fracture.
-ECG has not been checked, ordered by me
-Telemetry reviewed by me shows a 15 beat run of NSVT and overall rate controlled A-fib with occasional pauses less than 2 to 3 seconds.
-Magnesium was 1.8 and potassium 3.7 at the time of NSVT. Patient was given magnesium oxide 400 mg PO x 1 and KCl 10 mEq PO x 1 at that time. Repeat labs 09/01/2025 show potassium improved a bit to 3.9 and magnesium level was not repeated.
-KCl 40 mEq PO x 1 now and then 20 mEq daily ordered by me.
-Magnesium oxide 400 mg daily ordered by me
-Repeat BMP and magnesium level in the a.m., orders placed by me
-Check echo, ordered by me. EF was preserved to 50% by echo 04/13/2024.
-Would not add AV carmelita guy therapy due to permanent atrial arrhythmia with slow ventricular response.
[2025-09-01] MEDS: HYDROCORTISONE 1% CREAM 1 APPLIC TOPICAL (17:06)
[2025-09-01] MEDS: MAGNESIUM OXIDE 400 MG PO (17:20)
[2025-09-01] MEDS: KCL 40 MEQ PO (17:20)
[2025-09-01] MEDS: ELIQUIS 5 MG PO (20:20)
[2025-09-02] VITALS (10 sets, daily range): BP systolic 146–198; BP diastolic 62–97; O2SAT 98
[2025-09-02] MEDS: HYDROCORTISONE 1% CREAM 1 APPLIC TOPICAL ×3 (02:10→21:16)
[2025-09-02 07:11] LABS: Blood Urea Nitrogen 20 mg/dl (9-20); Calcium 8.9 mg/dl (8.4-10.2); Carbon Dioxide 28 mmol/L (22-30); Chloride 100 mmol/L (98-107); Estimated Creatinine Clearance 63 ml/min; Glucose 89 mg/dl (70-99); Magnesium 2.0 mg/dl (1.6-2.3); Sodium 134 mmol/L (135-145); eGFR > 60.00
[2025-09-02 07:16] LABS: Potassium 4.4 mmol/L (3.5-5.1)
[2025-09-02] MEDS: MAGNESIUM OXIDE 400 MG PO (07:17)
[2025-09-02] MEDS: KCL 20 MEQ PO (07:17)
[2025-09-02] MEDS: LIDOCAINE 4% PATCH 1 PATCH TOPICAL (07:18)
[2025-09-02] MEDS: ELIQUIS 5 MG PO ×2 (07:18→19:09)
[2025-09-02] MEDS: TYLENOL 1000 MG PO ×3 (07:18→21:16)
[2025-09-02] MEDS: APRESOLINE 5 MG IV (07:18)
--- NOTE | 2025-09-02 10:57 | CON.NS ---
Consultation
-
Date/Time Consultation Performed: 09/02/2025; 11 AM
Performing Provider: Sabrina
Chief Complaint
History of Present Illness
This is a neurosurgical consultation on 89-year-old gentleman with multiple medical comorbidities, including atrial fibrillation, senile dementia, history of strokes, TIAs, who presented after a reported mechanical fall 2 days prior to presentation.
He was having back pain. Plan was to admit for pain control. Hospital course was characterized by sedation from pain medications. Interventional radiology was consulted to evaluate patient for vertebroplasty. Patient's opiates were stopped as
he was very sensitive and too lethargic. He was also found to have possible bibasilar pneumonia, as well as urinary tract infection.Initially, family wanted to proceed with the procedure. Family then decided that they wanted to counseled
vertebroplasty, and get a spinal consult. Neurosurgery consulted for this.
Patient seen and examined. Somewhat confused. But conversant.
Review of Systems
-
10 point review systems including constitutional, ENT, cardiovascular, respiratory, GI, , neurologic, endocrinologic, hematologic was performed: Was negative, except for stated in HPI.
Medication and Allergies
Home Medications
Home Medications
�Medication �Instructions �Recorded
apixaban 5 mg tablet (Eliquis) 5 mg PO BID Blood clot 05/09/20
prevention/tx
Allergies
Allergies
Allergy/AdvReac Type Severity Reaction Status Date / Time
No Known Allergies Allergy Verified 08/27/25 16:37
Physical Exam
-
Exam:
Awake, alert, follows simple commands.
Does converse, and is mildly confused. States that he presented 2 days ago to the hospital for
No tenderness to palpation over the thoracolumbar spine on my examination
5/5 strength bilaterally lower extremities in all muscle groups
CT of the abdomen/pelvis performed on 08/27/2025 was reviewed. Images reports viewed interpreted by me. There is a subtle lucency along the anterior superior endplate of T12 suspicious for fracture. No evidence of significant height loss,
retropulsion is seen.
Problems
-
Problem Status Onset Code
Fall Acute W19.XXXA
Back pain Acute M54.9
Closed T12 fracture Acute S22.089A
Assessment / Plan
-
89-year-old gentleman with intractable back pain, multiple medical comorbidities, with T12 fracture.
Recommend TLSO bracing, physical therapy, multimodal pain control.
If patient is unable to tolerate this, then would agree with discussion with the family regarding vertebroplasty via interventional radiology.
Discussed extensively with the patient's , who would like to proceed with nonoperative management.
If unable to control the pain despite bracing, then can suggest MRI. But would hold off at the present time, given mild nature of fracture, and examination, and that patient's expresses adamantly that she would like to not proceed with any
interventional treatments at the present time.
Will sign off.
[2025-09-02] MEDS: FLUSH (NSS) 1 FLUSH IV (13:38)
[2025-09-02] MEDS: STERILE WATER FOR INJECTION 10 ML IV (13:38)
[2025-09-02] MEDS: ROCEPHIN 1000 MG IV (13:38)
[2025-09-02] MEDS: SENOKOT-S 1 TABLET PO (13:42)
[2025-09-02] MEDS: MIRALAX 17 GRAMS PO (13:42)
[2025-09-02] MEDS: TORADOL 15 MG IV (13:49)
--- NOTE | 2025-09-02 14:07 | W.PN.HOSP.TC ---
Today's Communication/Plan
-
Back brace
Continue pain management with Toradol
PT/OT
Assessment / Plan
Assessment / Plan
Impression:
89-year-old male from home brought in due to persistent back pain after a unwitnessed fall several days ago. After his fall he has been complaining of lower back pain radiating around to his abdomen and has been his normal self. His states he
had difficulty following commands to get out of the car he tends to stare off on occasion. She reports security lifted him up into a wheelchair. She states he has history of new diagnosis dementia June 2025 by neurologist along with new right
parietal stroke on CT July [address] in 2023. He was found to have a T12 fracture in the ER with inability to ambulate due to pain. The patient denies headache, loss of consciousness, neck pain, chest pain, palpitations, cough,
shortness of breath, abdominal pain, nausea, vomiting, diarrhea, urinary symptoms.
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
Patient became very lethargic after receiving opioids and plan was for vertebroplasty, Elikelsiis held.
Started on rocephin
Met with the maureen who requested to cancel vertebroplasty.
Neurosurgery consulted
Cardiology consulted for recurrent nonsustained V. tach
Assessment/plan:
Unwitnessed fall with T12 fracture, intractable pain, ambulatory dysfunction
Chronic ambulatory dysfunction; uses walker at baseline for the past month
CT Abdomen/Pelvis (without contrast) findings:
Acute fracture of superior anterior T12 vertebral body (clinical correlation recommended)
Moderate hiatal hernia
Small hypodense hepatic lesions, likely cysts or hemangiomas
Few tiny gallstones
Severe diverticulosis
Mild diffuse bladder wall thickening (possible cystitis or bladder outlet obstruction)
Mild prostate hypertrophy
Severe atherosclerotic vascular disease
CT head shows:
1. No CT evidence for acute intracranial hemorrhage.
2. 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
3. Moderate-sized chronic transcortical infarct in the lateral right parietal lobe.
4. Small chronic transcortical infarct in the posterior left occipital lobe.
5. Small periventricular infarct in the right frontal lobe.
6. Moderate periventricular white matter leukoaraiosis in the parietal lobes.
Pain management:
Acetaminophen made standing
stop Oxycodone 2/2 severe sedation (see below)
Given severe pain and intolerance to opiates - consulted IR to consider vertebroplasty
Initiate bowel regimen
Consult PT/OT and case management
08/31
stated that she does not want to proceed with vertebroplasty.
Requested to resume Eliquis.
Discussed in more details that might be needed.
Will continue to hold Eliquis for next 24 hours and reevaluate tomorrow.
09/01
Will continue to try with Toradol.
Neurosurgery consulted
Resumed Eliquis, elected against vertebroplasty
09/02
Patient seen by neurosurgery.
Recommending continued pain control and back brace which is ordered and delivered at bedside
Pulm atrial fibrillation
Nonsustained V. tach
Resume Eliquis 5 mg twice daily
Cardiology consulted.
Echo 09/02 shows:
1. Left ventricular ejection fraction is normal with an ejection fraction of 55 % by Bryant's biplane method of discs.
2. Right ventricular size and systolic function are within normal limits.
3. Well seated TAVR. Leaflets appear thin and open normally. Peak/mean gradients 12/6 mmHg, respectively. Mild paravalvular regurgitation.
4. Moderate to severe mitral valve regurgitation.
5. Mild to moderate tricuspid regurgitation. Estimated pulmonary artery pressure of 24 mmHg assuming a right atrial pressure of 8 mmHg.
6. Compared to prior study dated 04/13/2024, there is little significant change.
Acute metabolic encephalopathy 2/2 opiate use (oxycodone)
-patient is very sedated on Friday, he received oxycodone earlier that morning
08/31
improved
09/02
Avoid all narcotics and continues Toradol
History of dementia (diagnosed 2023)
Requires prompts for ADLs
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
Continue Eliquis.
Coronary artery disease / NSTEMI (June 2022)
Continue current management
Hypertension
Used to be on lisinopril, use hydralazine as needed for now.
Will discuss with to resume lisinopril
Aortic stenosis status post TAVR (03/17/2024)
Monitor.
Arthritis (type unknown)
Symptomatic management
Reactive leukocytosis.
Follow CBC
Elevated bilirubin.
Not clinically signet
CODE STATUS: DNR
DVT prophylaxis: Eliquis
Diet: Regular diet
Family communication: Discussed with at bedside along with nurse water project manager
Disposition: Back brace
Continue pain management with Toradol
PT/OT
Total time spent on today's encounter was 55 minutes which included time spent in counseling the patient/family regarding diagnosis and treatment plan as listed above, goals of care, and symptom management. Case was discussed with nursing staff,
specialists, and care coordinators/case management. All labs and imaging personally reviewed by me. Remainder the time spent in detailed review of previous records, lab data, imaging, and other medical provider documentation.
Anticipated Discharge: 24 - 48 hours
Subjective/Interval History
-
Date of Service: September 02, 2025
Patient seen and examined at bedside, denies any chest pain or shortness of breath, still with back pain with ambulation, back brace at bedside.
Objective Data
-
Labs:
Laboratory Results
09/02/25
06:03
Sodium 134 L
Potassium 4.4
Chloride 100
Carbon Dioxide 28
BUN 20
Creatinine 0.7
Glucose 89
Calcium 8.9
Vital Signs:
Vital Signs
Temp Pulse Resp BP Pulse Ox
98.1 F 89 18 159/77 99
09/02/25 11:00 09/02/25 11:00 09/02/25 11:00 09/02/25 11:00 09/02/25 11:00
I&O
09/01/25 09/02/25 09/03/25
06:59 06:59 06:59
Intake Total 920 / 920 840 / 840
Output Total 1150 / 1150 475 / 475 500 / 500
Balance -230 / -230 365 / 365 -500 / -500
Physical Exam
-
General: Well Developed, Well Nourished, No Apparent Distress and Comfortable
HEENT: Normocephalic, Atraumatic, Moist Mucous Membranes, No Ptosis, PERRLA and Nose Appears Normal
Respiratory: Clear to Auscultation and Non Labored Respirations
Cardiac: Regular Rhythm and S1/S2
Breast: Deferred by me
GI: Soft, Nontender, Nondistended and Normal Bowel Sounds
Genito-urinary: No Costovertebral Tender
Musculoskeletal: No Clubbing, No Cyanosis and No Edema
Skin: Warm
Neuro: Awake
Psych: Calm and Confused (Less confused)
--- NOTE | 2025-09-02 14:14 | W.PN.UPDATE ---
Update Note
Progress Note Update
on 09/01 I Met with maureen along with nurse managers (Jonnathan Mccallum and Guerda Elizalde).
Patient's was upset that her received oxycodone on Friday night and was lethargic Friday morning which since then his mental status continue to improve.
IR consulted for vertebroplasty on Friday by Dr. Almaguer.
I discussed with previously on Friday 08/31 that we can try Toradol and if no improvement to consider vertebroplasty.
Patient's was objecting Toradol as she googled it and thought it is narcotic, explained to the that Toradol is NSAIDs and it is nonnarcotic pain option.
Patient's agreed to give him Toradol which seems to help with the pain.
Patient's asked to cancel vertebroplasty and resume Eliquis.
Communicated that with IR department and vertebroplasty canceled, Eliquis resumed.
Neurosurgery consulted recommended back brace (which he now delivered to bedside) and continue pain control, also recommended to consider vertebroplasty if pain control not sufficient.
In the meantime patient had nonsustained V. tach and was seen by cardiology who ordered echocardiogram which shows well-seated TAVR.
--- NOTE | 2025-09-02 15:54 | W.PN.CARDCBS ---
Addendum entered and electronically signed by Gee Santoyo MD 09/02/25 18:17:
I saw and examined the patient.
The Administrative Tech's note was reviewed and I agree with the note.
Comment: 89-year-old man past medical history of permanent atrial fibrillation, TAVR and dementia who was admitted for evaluation after a fall and diagnosed with T12 vertebral fracture cardiology is consulted for episode of nonsustained VT which is
seen on telemetry.
Episode of nonsustained VT on 09/01 and additional episode again today 09/02
Echo today shows normal LV function and normal TAVR gradients
Recommend repleting K>4, Mg>2
While here would keep on telemetry
It sounds like patient's preference is to minimize medications as much as possible
Would favor starting low-dose AV carmelita guy�plan to start metoprolol 12.5 mg daily
Eventual follow-up with primary cane feeder STEPH Mckeon
Original Note:
Today's Communication / Plan
-
Start Toprol 12.5mg daily
Impression / Plan
-
PCP: Dr. Rees
Cardiology: Dr. STEPH Mckeon
Impression:
Admitted with fall and ambulatory dysfunction 08/27/2025
Fall and ambulatory dysfunction
T12 vertebral fracture
NSVT
15 beat episode seen at 2111 on 08/31/2025
Permanent A-fib
Chronic Eliquis OAC
h/o CVA
s/p TAVR for severe at [facility] 03/17/2024
TME
Dementia
Hypokalemia
Hypomagnesemia
Echo 04/13/2024: EF 50%, stage II diastolic dysfunction, prolapse of the posterior mitral leaflet, moderate MR, s/p TAVR with peak/mean 7/4 mmHg, mild TR
Echo 09/01/2025: EF 55%, well seated TAVR with peak/mean gradients 12/6 mmHg, moderate to severe MR, mild to moderate TR, estimated PAP 24 mmHg
Plan:
-Presented with fall, found to have T12 compression fracture. Managing conservatively at this time.
-Cardiology consulted for episodes of NSVT noted on telemetry. Asymptomatic.
-Continues w/ brief episodes of NSVT. Otherwise in rate controlled afib.
-No bradycardia noted. As BP elevated, would start Toprol 12.5mg daily.
-Keep K > 4, mag > 2.
-Echo w/ preserved EF, stable TAVR as noted above.
HPI: Patient was admitted with fall and ambulatory dysfunction on 08/27/2025 and cardiology is now consulted for a 15 beat run of NSVT seen on telemetry last night. Patient had a fall a few days before coming to the ER due to symptoms of ongoing
back pain and inability to ambulate. Patient was admitted with a T12 vertebral compression fracture. Patient has been undergoing pain management and PT/OT. On telemetry patient had a 15 beat run of NSVT at 2111 last night, unclear if he was
symptomatic house TIMBER SELECTOR saw the patient and his potassium was 3.7 and magnesium 1.8, supplementation was ordered. Cardiology is now consulted. Patient has a history of a TAVR at help in 2023 and has a history of permanent A-fib and is on chronic
Eliquis as an outpatient, but that dosing is held while he is admitted here with a fall and compression fracture.
Progress Note - Hog Handler
Subjective
Date of Service: September 02, 2025
Objective
Labs:
09/01/25 06:43
09/02/25 06:03
Labs
Hgb 13.6 g/dL (13.0-18.0) 09/01/25 06:43
Hct 41.0 % (39.0-52.0) 09/01/25 06:43
Plt Count 258 10^3/uL (130-400) D 09/01/25 06:43
PT 17.7 Sec (11.4-14.6) H 08/31/25 07:07
INR 1.49 08/31/25 07:07
Sodium 134 mmol/L (135-145) L 09/02/25 06:03
Potassium 4.4 mmol/L (3.5-5.1) 09/02/25 06:03
BUN 20 mg/dl (9-20) 09/02/25 06:03
Creatinine 0.7 mg/dL (0.7-1.3) 09/02/25 06:03
Glucose 89 mg/dl (70-99) 09/02/25 06:03
Vital Signs and I&O:
Vital Signs
Temp Pulse Resp BP Pulse Ox
98.1 F 89 18 159/77 99
09/02/25 11:00 09/02/25 11:00 09/02/25 11:00 09/02/25 11:00 09/02/25 11:00
Vital Signs
Temp Pulse Resp BP Pulse Ox
98.1 F 89 18 159/77 99
09/02/25 11:00 09/02/25 11:00 09/02/25 11:00 09/02/25 11:00 09/02/25 11:00
Intake & Output
08/31/25 09/01/25 09/02/25 09/03/25
06:59 06:59 06:59 06:59
Intake Total 800 / 800 920 / 920 840 / 840
Output Total 500 / 500 1150 / 1150 475 / 475 500 / 500
Balance 300 / 300 -230 / -230 365 / 365 -500 / -500
Physical Exam
Physical Exam
GEN: NAD
LUNGS: RA
CV: AF on tele
[2025-09-02] MEDS: TOPROL XL 12.5 MG PO (15:59)
--- NOTE | 2025-09-02 17:22 | CM ---
CM is working on SNF placement for patient. [facility] will have an available bed for patient on 09/03/25. Spoke with patient's about transfer. Contacted [facility] to update authorization. IMM given.
SNF auth# auth #[id number] (approved 09/03- 09/07)
Ambulance auth#[id number]
[facility]
# for Report- for report- [phone] ext [phone]
fax#[phone]
Plan; [facility] 09/03
[2025-09-03 03:30] VITALS: BP 184/99
[2025-09-03] MEDS: APRESOLINE 5 MG IV (06:48)
[2025-09-03 07:00] VITALS: BP 179/77
[2025-09-03] MEDS: KCL 20 MEQ PO (08:24)
[2025-09-03] MEDS: LIDOCAINE 4% PATCH 1 PATCH TOPICAL (08:24)
[2025-09-03] MEDS: ELIQUIS 5 MG PO ×2 (08:24→20:33)
[2025-09-03] MEDS: MAGNESIUM OXIDE 400 MG PO (08:25)
[2025-09-03] MEDS: TOPROL XL 12.5 MG PO (08:25)
[2025-09-03] MEDS: TYLENOL 1000 MG PO ×3 (08:25→23:43)
[2025-09-03] MEDS: HYDROCORTISONE 1% CREAM 1 APPLIC TOPICAL ×2 (08:25→13:37)
[2025-09-03 11:00] VITALS: BP 142/63
--- NOTE | 2025-09-03 12:54 | W.PN.HOSP.TC ---
Today's Communication/Plan
-
see plan
Assessment / Plan
Assessment / Plan
Admission summary: 89-year-old male from home brought in due to persistent back pain after a unwitnessed fall several days ago. After his fall he has been complaining of lower back pain radiating around to his abdomen and has been his normal self.
His states he had difficulty following commands to get out of the car he tends to stare off on occasion. She reports security lifted him up into a wheelchair. She states he has history of new diagnosis dementia June 2025 by neurologist
along with new right parietal stroke on CT July [address] in 2023. He was found to have a T12 fracture in the ER with inability to ambulate due to pain. The patient denies headache, loss of consciousness, neck pain, chest pain,
palpitations, cough, shortness of breath, abdominal pain, nausea, vomiting, diarrhea, urinary symptoms.
Gen: NAD, Awake and alert
Eyes: EOMI, PERRLA, no scleral icterus.
Neck: supple.
CV: irreg/irreg, +S1/S2, no m/r/g.
Resp: CTAB, no rales, wheezes, or rhonchi.
Abd: +BS, soft, NT, ND
Skin: No rashes.
Neuro: CN 2-12 intact, non-focal.
Psych: Normal mood and affect.
CT A/P: Acute appearing fracture of the superior anterior T12 vertebral body. Clinical correlation recommended. Moderate hiatal hernia. Too small to characterize hypodense hepatic lesions likely small cysts or hemangiomas. Few tiny gallstones.
Severe diverticulosis. Mild diffuse bladder wall thickening. This can be seen with cystitis and bladder outlet obstruction. Mild prostate hypertrophy. Severe atherosclerotic vascular disease.
CT head:
1. No CT evidence for acute intracranial hemorrhage.
2. 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
3. Moderate-sized chronic transcortical infarct in the lateral right parietal lobe.
4. Small chronic transcortical infarct in the posterior left occipital lobe.
5. Small periventricular infarct in the right frontal lobe.
6. Moderate periventricular white matter leukoaraiosis in the parietal lobes.
Echo 09/02:
1. Left ventricular ejection fraction is normal with an ejection fraction of 55 % by Bryant's biplane method of discs.
2. Right ventricular size and systolic function are within normal limits.
3. Well seated TAVR. Leaflets appear thin and open normally. Peak/mean gradients 12/6 mmHg, respectively. Mild paravalvular regurgitation.
4. Moderate to severe mitral valve regurgitation.
5. Mild to moderate tricuspid regurgitation. Estimated pulmonary artery pressure of 24 mmHg assuming a right atrial pressure of 8 mmHg.
6. Compared to prior study dated 04/13/2024, there is little significant change.
Acute T12 fx:
-pt's now declining vertebroplasty
-had acute toxic encephalopathy due to opioids
-neurosurgery saw in c/s, recommended TLSO, PT/OT
-pain control with standing Tylenol, Lidoderm patch, Toradol
Permanent Afib:
-with NSVT 09/01 and 09/02
-cards following
-BB started
Other problems:
Dementia
h/o CVA (right parietal infarct on CT 07/20/2025): cont Eliquis
CAD s/p NSTEMI (June 2022): cont BB
Essential HTN: cont BB
s/p TAVR (03/17/2024)
Arthritis (type unknown)
Reactive leukocytosis, resolved
Elevated bilirubin, mild, not clinically significant
DNR/Eliquis
Anticipated Discharge: Within 24 hours
Subjective/Interval History
-
Date of Service: September 03, 2025
Pt states his back pain is 'not great.'
Objective Data
-
Vital Signs:
Vital Signs
Temp Pulse Resp BP Pulse Ox
97.6 F 71 16 142/63 100
09/03/25 11:00 09/03/25 11:00 09/03/25 11:00 09/03/25 11:00 09/03/25 11:00
I&O
09/02/25 09/03/25 09/04/25
06:59 06:59 06:59
Intake Total 840 / 840 960 / 960
Output Total 475 / 475 825 / 825 650 / 650
Balance 365 / 365 135 / 135 -650 / -650
--- NOTE | 2025-09-03 14:21 | CM ---
Patient has not been cleared for discharge today, plan is for skilled at [facility], Auth has been completed.
Plan; Skilled placement when stable, patient's spouse has been updated.
[2025-09-03 15:00] VITALS: BP 128/90
[2025-09-03 20:08] VITALS: BP 169/85
[2025-09-03 23:54] VITALS: BP 159/68
--- NOTE | 2025-09-04 01:26 | PTCARENOTE ---
Pt with 11 beat run vtach, asymptomatic, asleep. WINCHMAN/CRANE OPERATOR Scammahorn notified, BMP and Mag ordered. No further orders.
[2025-09-04 03:47] VITALS: BP 166/95
[2025-09-04] MEDS: HYDROCORTISONE 1% CREAM 1 APPLIC TOPICAL ×2 (05:17→09:10)
[2025-09-04 07:45] VITALS: BP 162/105
[2025-09-04 08:18] LABS: Blood Urea Nitrogen 19 mg/dl (9-20); Calcium 9.1 mg/dl (8.4-10.2); Carbon Dioxide 25 mmol/L (22-30); Chloride 102 mmol/L (98-107); Estimated Creatinine Clearance 74 ml/min; Glucose 92 mg/dl (70-99); Magnesium 1.9 mg/dl (1.6-2.3); Potassium 4.6 mmol/L (3.5-5.1); Sodium 134 mmol/L (135-145); eGFR > 60.00
--- NOTE | 2025-09-04 08:51 | W.PN.HOSP.TC ---
Today's Communication/Plan
-
see plan
Assessment / Plan
Assessment / Plan
Admission summary: 89-year-old male from home brought in due to persistent back pain after a unwitnessed fall several days ago. After his fall he has been complaining of lower back pain radiating around to his abdomen and has been his normal self.
His states he had difficulty following commands to get out of the car he tends to stare off on occasion. She reports security lifted him up into a wheelchair. She states he has history of new diagnosis dementia June 2025 by neurologist
along with new right parietal stroke on CT July [address] in 2023. He was found to have a T12 fracture in the ER with inability to ambulate due to pain. The patient denies headache, loss of consciousness, neck pain, chest pain,
palpitations, cough, shortness of breath, abdominal pain, nausea, vomiting, diarrhea, urinary symptoms.
Gen: NAD, Awake and alert
Eyes: EOMI, PERRLA, no scleral icterus.
Neck: supple.
CV: Remains irreg/irreg, +S1/S2, no m/r/g.
Resp: CTAB anteriorly, no rales, wheezes, or rhonchi.
Abd: Remains +BS, soft, NT, ND
Skin: No rashes.
Neuro: CN 2-12 intact, non-focal.
Psych: Normal mood and affect.
CT A/P: Acute appearing fracture of the superior anterior T12 vertebral body. Clinical correlation recommended. Moderate hiatal hernia. Too small to characterize hypodense hepatic lesions likely small cysts or hemangiomas. Few tiny gallstones.
Severe diverticulosis. Mild diffuse bladder wall thickening. This can be seen with cystitis and bladder outlet obstruction. Mild prostate hypertrophy. Severe atherosclerotic vascular disease.
CT head:
1. No CT evidence for acute intracranial hemorrhage.
2. 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
3. Moderate-sized chronic transcortical infarct in the lateral right parietal lobe.
4. Small chronic transcortical infarct in the posterior left occipital lobe.
5. Small periventricular infarct in the right frontal lobe.
6. Moderate periventricular white matter leukoaraiosis in the parietal lobes.
Echo 09/02:
1. Left ventricular ejection fraction is normal with an ejection fraction of 55 % by Bryant's biplane method of discs.
2. Right ventricular size and systolic function are within normal limits.
3. Well seated TAVR. Leaflets appear thin and open normally. Peak/mean gradients 12/6 mmHg, respectively. Mild paravalvular regurgitation.
4. Moderate to severe mitral valve regurgitation.
5. Mild to moderate tricuspid regurgitation. Estimated pulmonary artery pressure of 24 mmHg assuming a right atrial pressure of 8 mmHg.
6. Compared to prior study dated 04/13/2024, there is little significant change.
Acute T12 fx:
-pt's now declining vertebroplasty
-had acute toxic encephalopathy due to opioids
-neurosurgery saw in c/s, recommended TLSO, PT/OT
-pain control with standing Tylenol, Lidoderm patch, Toradol
Permanent Afib:
-with NSVT 09/01 and 09/02
-cards following
-BB started
Other problems:
Dementia
h/o CVA (right parietal infarct on CT 07/20/2025): cont Eliquis
CAD s/p NSTEMI (June 2022): cont BB, start Lisinopril 5mg daily
Essential HTN: cont BB
s/p TAVR (03/17/2024)
Arthritis (type unknown)
Reactive leukocytosis, resolved
Elevated bilirubin, mild, not clinically significant
DNR/Eliquis
Total time spent on d/c = 31 min. This included today's physical exam, progress note, review of laboratory and diagnostic data, preparation of discharge documents and prescriptions, and discussions about the pt's hospital course and discharge plan
with the patient and other medical driver involved in the patient's care.
Anticipated Discharge: Today
Subjective/Interval History
-
Date of Service: September 04, 2025
When asked how he is feeling the patient states 'better.'
Objective Data
-
Labs:
Laboratory Results
09/04/25
07:17
Sodium 134 L
Potassium 4.6
Chloride 102
Carbon Dioxide 25
BUN 19
Creatinine 0.6 L
Glucose 92
Calcium 9.1
Vital Signs:
Vital Signs
Temp Pulse Resp BP Pulse Ox
97.4 F 77 18 162/105 100
09/04/25 07:45 09/04/25 07:45 09/04/25 07:45 09/04/25 07:45 09/04/25 07:45
I&O
09/03/25 09/04/25 09/05/25
06:59 06:59 06:59
Intake Total 960 / 960
Output Total 825 / 825 1450 / 1450
Balance 135 / 135 -1450 / -1450
[2025-09-04] MEDS: ZESTRIL 5 MG PO (09:06)
[2025-09-04] MEDS: KCL 20 MEQ PO (09:07)
[2025-09-04] MEDS: ELIQUIS 5 MG PO (09:07)
[2025-09-04] MEDS: TYLENOL 1000 MG PO (09:07)
[2025-09-04] MEDS: MAGNESIUM OXIDE 400 MG PO (09:07)
[2025-09-04] MEDS: TOPROL XL 12.5 MG PO (09:07)
[2025-09-04] MEDS: LIDOCAINE 4% PATCH 1 PATCH TOPICAL (09:08)
--- NOTE | 2025-09-04 09:14 | CM ---
Addendum entered by Ruth Romo 09/04/25 10:37:
Ambulance picker and sorter load and unload 11:30am, updated clinicals sent. Spouse aware of picker and sorter load and unload time.
Original Note:
Patient has been cleared for discharge today, Auth has been reviewed and per Minna at [facility] they have a bed for patient today. Updated clinicals faxed as requested.
Plan: transfer to [facility] today.
SNF auth# auth #[id number] (approved 09/03- 09/07)
Ambulance auth#[id number]
[facility]
# for Report- for report- [phone] ext [phone]
fax#[phone]
--- NOTE | 2025-09-04 10:59 | PTCARENOTE ---
Report called to Demetra at [facility]. Last dose and discharge paperwork completed and printed for transport. IV removed. Tele removed. supervisor general at 1130 by acute care ambulance.
== END 2025-09-04 11:43 | DRG 551 ==
LOC: 4 WEST ACU 13:16
PROVIDERS: Clinical Nurse Specialist Family Health; General Practice; Nurse Practitioner Family; Physician Assistant Medical; Student in an Organized Health Care Education/Training Program; ADMITTING PHYSICIAN Hospitalist; ATTENDING PHYSICIAN Internal Medicine; CONSULT PHYSICIAN Neurological Surgery; EMERGENCY PHYSICIAN Emergency Medicine; FAMILY PHYSICIAN Internal Medicine; OTHER PHYSICIAN Internal Medicine Cardiovascular Disease; OTHER PHYSICIAN Radiology Vascular & Interventional Radiology
DX: S22.088A Other fracture of T11-T12 vertebra, initial encounter for closed fracture (principal); G92.8 Other toxic encephalopathy; I21.4 Non-ST elevation (NSTEMI) myocardial infarction; I48.21 Permanent atrial fibrillation; I47.20 Ventricular tachycardia, unspecified; J98.11 Atelectasis; W18.30XA Fall on same level, unspecified, initial encounter; Z86.73 Personal history of transient ischemic attack (TIA), and cerebral infarction without residual deficits; F03.90 Unspecified dementia, unspecified severity, without behavioral disturbance, psychotic disturbance, mood disturbance, and anxiety; I10 Essential (primary) hypertension; Z95.2 Presence of prosthetic heart valve; Z87.891 Personal history of nicotine dependence; Z79.01 Long term (current) use of anticoagulants; I25.10 Atherosclerotic heart disease of native coronary artery without angina pectoris; K44.9 Diaphragmatic hernia without obstruction or gangrene; D18.03 Hemangioma of intra-abdominal structures; K57.30 Diverticulosis of large intestine without perforation or abscess without bleeding; N40.0 Benign prostatic hyperplasia without lower urinary tract symptoms; I08.1 Rheumatic disorders of both mitral and tricuspid valves; E83.42 Hypomagnesemia; E87.6 Hypokalemia; I25.2 Old myocardial infarction; T40.2X5A Adverse effect of other opioids, initial encounter; Z11.52 Encounter for screening for COVID-19
CPT/HCPCS: 70450; 71046; 74176; 80048; 80053; 81003; 81015; 82805; 83735; 84145; 85025; 85027; 85610; 87086; 87502; 87811; 93005; 93306; 96374; 97116; 97162; 97166; 97530; 97535; 99284